=== PATIENT | female | born 1935 | race Caucasian/White ===

== ENCOUNTER 2019-01-15 17:53 | Inpatient (IN) ==
[2019-01-16] MEDS ORDERED: Mag Hydrox/Al Hydrox/Simeth 30 ML UDC PO PRN (18:52)
[2019-01-16] MEDS ORDERED: *HR* Dextrose 50 % in Water (Syg) 50 ML SYRINGE IVP PRN (18:53)
[2019-01-16] MEDS ORDERED: D5% in Water 1,000 ML IVC PRN (18:53)
[2019-01-16] MEDS ORDERED: Dextrose Gel 15 GM/37.5 ML TUBE PO PRN ×2 (18:53)
[2019-01-16] MEDS ORDERED: CALCIUM PO SCH (21:00)
[2019-01-16] MEDS ORDERED: VIT D PO SCH (21:00)
[2019-01-16] MEDS: Insulin LISPRO 300 UNITS/3 ML VIAL SQ SCH (21:21)
[2019-01-17] MEDS: Sennosides/Docusate Sodium TABLET PO SCH ×3 (00:46→21:18)
[2019-01-17] MEDS: Melatonin 3 MG TABLET PO PRN ×2 (00:56→21:13)
[2019-01-17] MEDS: *HR* OxyCODONE Immed Rel 5 MG TABLET PO PRN (00:56)
[2019-01-17 05:06] LABS: Basophils # 0.1 K/mcL (0.0-0.2); Basophils % 0.6 %; Eosinophils # 0.2 K/mcL (0.0-0.6); Eosinophils % 1.4 %; Hematocrit 31.5 % (35.3-44.9); Hemoglobin 10.1 g/dL (11.5-15.4); Immature Granulocytes % 2.2 % (0-4); Lymphocytes # 2.2 K/mcL (0.6-4.6); Lymphocytes % 20.3 %; Mean Corpuscular HGB Conc 32.1 g/dL (31.6-35.5); Mean Corpuscular Hemoglobin 30.7 pg (28.0-33.3); Mean Corpuscular Volume 95.7 fL (83.0-100.0); Mean Platelet Volume 10.2 fL (9.4-12.4); Monocytes # 0.8 K/mcL (0.0-1.3); Monocytes % 7.2 %; Neutrophils # 7.5 K/mcL (1.6-8.9); Platelet Count 278 K/mcL (140-400); Red Blood Count 3.29 M/mcL (3.82-4.97); Segmented Neutrophils % 68.3 %; White Blood Count 10.9 K/mcL (4.3-11.1)
[2019-01-17 05:25] LABS: Alanine Aminotransferase 18 Units/L (7-52); Albumin 3.3 g/dL (3.5-5.7); Albumin/Globulin Ratio 1.3 (1.1-2.2); Alkaline Phosphatase 61 Units/L (34-104); Aspartate Amino Transferase 21 Units/L (13-39); BUN/Creatinine Ratio 27 (6-26); Bilirubin,Total 0.7 mg/dL (0.3-1.0); Blood Urea Nitrogen 23 mg/dL (8-23); Calcium 8.7 mg/dL (8.6-10.3); Carbon Dioxide 27 mEq/L (23-29); Chloride 99 mEq/L (98-107); Globulin 2.6 g/dL (2.4-3.5); Glucose 177 mg/dL (70-105); Magnesium 1.6 mg/dL (1.6-2.6); Osmolality,Calculated 290 (280-300); Potassium 4.2 mEq/L (3.5-5.1); Sodium 136 mEq/L (136-145); Total Protein 5.9 g/dL (6.4-8.9); eGFR For African Americans > 60 (> 60); eGFR For Non-African Americans > 60 (> 60)
[2019-01-17] MEDS: *HR* Glimepiride 4 MG TABLET PO SCH (08:53)
[2019-01-17] MEDS: BuPROPion XL (24 HR) 150 MG TABLET PO SCH (08:53)
[2019-01-17] MEDS: Insulin LISPRO 300 UNITS/3 ML VIAL SQ SCH ×4 (08:54→21:18)
[2019-01-17] MEDS: Bisoprolol/HCTZ 10/6.25 TABLET PO SCH (08:55)
[2019-01-17] MEDS: Trolamine Salicylate/Aloe Vera 35.4 GM TUBE TP SCH (08:55)
[2019-01-17] MEDS ORDERED: *HR* Enoxaparin 30 MG/0.3 ML SYRINGE SQ SCH (09:00)
[2019-01-17] MEDS ORDERED: METFORMIN HCL 500 MG PO SCH (09:00)
[2019-01-17] MEDS: Acetaminophen 325 MG TABLET PO PRN ×2 (09:28→21:13)
--- NOTE | 2019-01-17 11:40 | Internal Med History&Physical ---
Date of Encounter: 01/17/19 Time of Encounter: 11:37 Assessment and Plan (1) Thoracic vertebral fracture Current visit: Yes Status: Acute This is at T3 through T8 and surgery corrected. Qualifiers: Encounter type: subsequent encounter Thoracic vertebra fracture level: unspecified thoracic vertebra Fracture type: closed Fracture morphology: bu rst- stable Fracture healing: with routine healing Qualified Code(s): S22.001D - Stable burst fracture of unspecified thoracic vertebra, subsequent encounter for fracture with routine healing (2) Multiple rib fractures Current visit: Yes Status: Acute Pain control is problematic and she uses lidocaine patches for same. Qualifiers: Encounter type: subsequent encounter Fracture type: closed Laterality: bilateral Fracture healing: with routine healing Qualified Code(s): S22.43XD - Multiple fractures of ribs, bilateral, subsequent encounter for fracture with routine healing (3) Bilateral scapular fractures Current visit: Yes Status: Acute No apparent needs other than pain control. Qualifiers: Encounter type: subsequent encounter Fracture type: closed Fracture healing: with routine healing Qualified Code(s): S42.101D - Fracture of unspecified part of scapula, right shoulder, subsequent encounter for fracture with routine healing; S42.102D - Fracture of unspecified part of scapula, left shoulder, subsequent encounter for fracture with routine healing (4) Pneumothorax Current visit: Yes Status: Acute Apparently self-limited. Qualifiers: Pneumothorax type: unspecified pneumothorax Qualified Code(s): J93.9 - Pneumothorax, unspecified (5) Subdural hematoma Current visit: Yes Status: Acute Apparently small and self-limited (6) Hypertension, essential Current visit: Yes Status: Acute Moderately controlled on current regimen. Will follow. (7) Insulin-requiring or dependent type II diabetes mellitus Current visit: Yes Status: Chronic We will continue with current regimen and follow with sliding scale insulin. (8) Depression Current visit: Yes Status: Acute Currently treated but will ask behavioral psychology to evaluate, especially with questionable mental impairment. 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 Qualifiers: Left eye visual impairment category: left - unspecified impairment Qualified Code(s): H54.40 - Blindness, one eye, unspecified eye Internal Medicine - H&P: HPI Admitted From: Hospital to Hospital Transfer Plans for Post Hospital Care: Home History of present illness: Ms. Carlos is a 83 year old female who was in her usual state of health until she fell, at home on 01/06/2019. She fell in the presence of family (her grandson) who thought she passed out. However, she denies syncope, to her knowledge. She had no palpitations, chest pain, diaphoresis, etc. After the fall, she had acute pain in his transfer for management at [facility]. She was found to have bilateral scapular body fractures, rib fractures, fractures of lumbar spine which underwent fusion surgery. She had T5 traumatic burst fracture with 3 mm retropulsion, T4 and T5 spinous process fractures, T5 bilateral lamina fracture. She underwent T3-T8 fusion. She was noted to have left rib 7 through 11 and right fifth through eighth rib fractures with small left pneumothorax. She was incidentally found to have fatty liver, thoracolumbar degenerative disc disease, superior mesenteric artery atherosclerosis. She is noted on [facility] hospital notes to have cognitive deficits with are moderate but this is not consistently described in the notes. She is to have follow-up with trauma surgery but at an undetermined time and with neurosurgery in 2 weeks for a wound check. She was noted to have a right tentorial traumatic subdural hematoma. She is now transferred for rehabilitation, return to activities of daily living, and supportive care. Past medical history, social history, and review of systems were reviewed with patient. Much of her past medical history was obtained from outside records, as well. Of note, she was receiving Lovenox 30 mg twice a day as DVT prophylaxis at the other hospital. She is diabetic and has had retinal detachment followed by 3 surgeries which were unsuccessful. She does not even detect light in the right eye. She has visual disturbance in the left eye, as well, because of her diabetes. She has a history of depression but is not taking any medications for this, currently. 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 She lives alone but her daughter lives across the road. Family history is noncontributory. Past Med Surg Social Fam HX - Past Medical History Medical history: diabetes, hyperlipidemia, hypertension Psychiatric history: depression - Past Surgical History Additional surgical history: Thoracic Spine ORIF s/p fall 2019 - Social History Smoking Status: Never smoker Smokeless Tobacco Status: No Alcohol use: none Drug use: none - Family History Father Living Status: Hx Family Cardiac Disorders: Yes Internal Medicine - H&P: Meds Acetaminophen [Tylenol] 650 mg PO Q4HR PRN 01/16/19 [History] Bisoprolol/HCTZ 10/6.25 [Ziac 10/6.25] 1 each PO DAILY 01/16/19 [History] BuPROPion [Wellbutrin] 150 mg PO DAILY 01/16/19 [History] Calcium 500 + Vit D Caplet 1 tab PO BID 01/16/19 [History] Docusate Sodium-Senna Tablet 1 tab PO BID 01/16/19 [History] Enoxaparin [Lovenox] 40 mg SQ DAILY 01/16/19 [History] Glimepiride [Amaryl] 4 mg PO DAILY 01/16/19 [History] Insulin Glargine [Lantus] 20 units SQ QPM 01/16/19 [History] Lidocaine [Aspercreme] 2 each TP DAILY 01/16/19 [History] Lisinopril 2.5 mg PO DAILY 01/16/19 [History] Metformin HCl [Glucophage Xr] 500 mg PO DAILY 01/16/19 [History] OxyCODONE Immed Rel 5 mg PO Q6HR PRN 01/16/19 [History] Allergy/AdvReac Type Severity Reaction Status Date / Time No Known Allergies Allergy Verified 01/06/19 15:03 All Systems PM: Her mouth is always dry and she uses, all of the time. Bowel and bladder function have been normal. - Constitutional Vitals: Temp Pulse Resp BP Pulse Ox 98.0 F 82 16 150/71 98 01/17/19 07:42 01/17/19 08:16 01/17/19 08:16 01/17/19 08:16 01/17/19 08:16 Exam: General: In no apparent distress, alert and oriented 3. Head: Atraumatic and normocephalic. Eyes: Extraocular muscles are intact, left pupil is round and reactive to light and accommodation. The right, accommodates sympatheticly but not directly. Sclerae anicteric. Ears: External ears are normal to inspection and hearing is grossly normal. Nose: Patent without lesion noted. Mouth: No intraoral lesions seen. Dentition is unremarkable. Her tongue is notably dry. Neck: Supple with trachea midline. There is no thyromegaly or adenopathy and carotids are 2+ without bruit heard. Respiratory: No use of accessory muscles. Lungs are clear throughout. Normal airflow. Marked ecchymosis at right lower thorax, laterally. Cardiovascular: Regular rate and rhythm without murmur appreciated. Abdomen: Bowel sounds are normal. No hepatosplenomegaly masses or tenderness. Obese and therefore difficult to palpate deeply. Extremities: No cyanosis clubbing or edema. Neurological: A and O 3. Cranial nerves II through XII are intact. No focal deficits and no abnormal movements or postures. Skin: Warm and non-diaphoretic with no lesions noted. However, she does have a low back dressing which was not removed. Breasts, pelvic and rectal: Not examined. Internal Med - H&P Results - Labs CBC & Chem 7: 01/17/19 04:56 01/17/19 04:56 Labs: Short CBC 01/17/19 Range/Units 04:56 WBC 10.9 (4.3-11.1) K/mcL Hgb 10.1 L (11.5-15.4) g/dL Hct 31.5 L (35.3-44.9) % Plt Count 278 (140-400) K/mcL Neutrophils # 7.5 (1.6-8.9) K/mcL BMP 01/17/19 04:56 Sodium 136 Potassium 4.2 Chloride 99 Carbon Dioxide 27 BUN 23 Creatinine 0.86 Glucose 177 H Calcium 8.7 Liver Function 01/17/19 Range/Units 04:56 Total Bilirubin 0.7 (0.3-1.0) mg/dL AST 21 (13-39) Units/L ALT 18 (7-52) Units/L Alkaline Phosphatase 61 (34-104) Units/L Albumin 3.3 L (3.5-5.7) g/dL
[2019-01-17] MEDS ORDERED: cloNIDine HCl 0.1 MG TABLET PO PRN (12:18)
[2019-01-17] MEDS: Insulin DETEMIR 100 UNIT/ML X5UNITS SQ SCH (17:30)
[2019-01-18] MEDS: Ondansetron ODT 4 MG TAB.RAPDIS SL PRN (01:18)
[2019-01-18] MEDS: *HR* OxyCODONE Immed Rel 5 MG TABLET PO PRN (01:18)
[2019-01-18] MEDS: *HR* Enoxaparin 40 MG/0.4 ML SYRINGE SQ SCH (06:50)
[2019-01-18] MEDS: Bisoprolol/HCTZ 10/6.25 TABLET PO SCH (08:19)
[2019-01-18] MEDS: Sennosides/Docusate Sodium TABLET PO SCH ×2 (08:20→20:11)
[2019-01-18] MEDS: Acetaminophen 325 MG TABLET PO PRN (08:20)
[2019-01-18] MEDS: Trolamine Salicylate/Aloe Vera 35.4 GM TUBE TP SCH (08:21)
[2019-01-18] MEDS: BuPROPion XL (24 HR) 150 MG TABLET PO SCH (08:21)
[2019-01-18] MEDS: *HR* Glimepiride 4 MG TABLET PO SCH (08:21)
[2019-01-18] MEDS: Insulin LISPRO 300 UNITS/3 ML VIAL SQ SCH ×4 (08:21→21:57)
--- NOTE | 2019-01-18 12:35 | Internal Med Progress Note ---
Date of Encounter: 01/19/19 Time of Encounter: 12:03 - Subjective Interval history: dd Assessment and Plan (1) Thoracic vertebral fracture Current visit: Yes Status: Acute This is at T3 through T8 and surgery corrected. Qualifiers: Encounter type: subsequent encounter Thoracic vertebra fracture level: unspecified thoracic vertebra Fracture type: closed Fracture morphology: burst- stable Fracture healing: with routine healing Qualified Code(s): S2 2.001D - Stable burst fracture of unspecified thoracic vertebra, subsequent encounter for fracture with routine healing (2) Multiple rib fractures Current visit: Yes Status: Acute Pain control is problematic and she uses lidocaine patches for same. Qualifiers: Encounter type: subsequent encounter Fracture type: closed Laterality: bilateral Fracture healing: with routine healing Qualified Code(s): S22.43XD - Multiple fractures of ribs, bilateral, subsequent encounter for fracture with routine healing (3) Bilateral scapular fractures Current visit: Yes Status: Acute No apparent needs other than pain control. Qualifiers: Encounter type: subsequent encounter Fracture type: closed Fracture healing: with routine healing Qualified Code(s): S42.101D - Fracture of unspecified part of scapula, right shoulder, subsequent encounter for fracture with routine healing; S42.102D - Fracture of unspecified part of scapula, left shoulder, subsequent encounter for fracture with routine healing (4) Pneumothorax Current visit: Yes Status: Acute Apparently self-limited. Qualifiers: Pneumothorax type: unspecified pneumothorax Qualified Code(s): J93.9 - Pneumothorax, unspecified (5) Subdural hematoma Current visit: Yes Status: Acute Apparently small and self-limited (6) Hypertension, essential Current visit: Yes Status: Acute Moderately controlled on current regimen. Will follow. (7) Insulin-requiring or dependent type II diabetes mellitus Current visit: Yes Status: Chronic We will continue with current regimen and follow with sliding scale insulin. (8) Depression Current visit: Yes Status: Acute Currently treated but will ask behavioral psychology to evaluate, especially with questionable mental impairment. 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 Qualifiers: Left eye visual impairment category: left - unspecified impairment Qualified Code(s): H54.40 - Blindness, one eye, unspecified eye Interval hx Ms. Carlos is a 83 year old female who was in her usual state of health until she fell, at home on 01/06/2019. She fell in the presence of family (her grandson) who thought she passed out. However, she denies syncope, to her knowledge. She had no palpitations, chest pain, diaphoresis, etc. After the fall, she had acute pain in his transfer for management at [facility]. She was found to have bilateral scapular body fractures, rib fractures, fractures of lumbar spine which underwent fusion surgery. She had T5 traumatic burst fracture with 3 mm retropulsion, T4 and T5 spinous process fractures, T5 bilateral lamina fracture. She underwent T3-T8 fusion. She was noted to have left rib 7 through 11 and right fifth through eighth rib fractures with small left pneumothorax. She was incidentally found to have fatty liver, thoracolumbar degenerative disc disease, superior mesenteric artery atherosclerosis. She is noted on [facility] hospital notes to have cognitive deficits with are moderate but this is not consistently described in the notes. She is to have follow-up with trauma surgery but at an undetermined time and with neurosurgery in 2 weeks for a wound check. She was noted to have a right tentorial traumatic subdural hematoma. She is now transferred for rehabilitation, return to activities of daily living, and supportive care. Past medical history, social history, and review of systems were reviewed with patient. Much of her past medical history was obtained from outside records, as well. Of note, she was receiving Lovenox 30 mg twice a day as DVT prophylaxis at the other hospital. She is diabetic and has had retinal detachment followed by 3 surgeries which were unsuccessful. She does not even detect light in the right eye. She has visual disturbance in the left eye, as well, because of her diabetes. EXAM General: In no apparent distress, alert and oriented Head: Atraumatic and normocephalic. Eyes: Extraocular muscles are intact, left pupil is round and reactive to light and accommodation. The right, accommodates sympatheticly but not directly. Sclerae anicteric. Ears: External ears are normal to inspection and hearing is grossly normal. Nose: Patent without lesion noted. Mouth: No intraoral lesions seen. Dentition is unremarkable. Her tongue is notably dry. Neck: Supple with trachea midline. There is no thyromegaly or adenopathy and carotids are 2+ without bruit heard. Respiratory: No use of accessory muscles. Lungs are clear throughout. Normal airflow. Marked ecchymosis at right lower thorax, laterally. Cardiovascular: Regular rate and rhythm without murmur appreciated. Abdomen: Bowel sounds are normal. No hepatosplenomegaly masses or tenderness. Obese and therefore difficult to palpate deeply. Extremities: No cyanosis clubbing or edema. Neurological: A and O 3. Cranial nerves II through XII are intact. No focal deficits - Constitutional Vitals: Temp Pulse Resp BP Pulse Ox 97.5 F L 73 14 142/69 94 01/18/19 07:37 01/18/19 07:37 01/18/19 07:37 01/18/19 07:37 01/18/19 07:37 Internal Medicine: Result - Labs CBC & Chem 7: 01/19/19 04:03 01/19/19 04:03 Consult Discharge Plan - Plan Referrals: Eusebio Walker MD [Primary Care Provider] -
[2019-01-18] MEDS: Insulin DETEMIR 100 UNIT/ML X5UNITS SQ SCH (16:51)
[2019-01-19 05:14] LABS: Hematocrit 29.3 % (35.3-44.9); Hemoglobin 9.5 g/dL (11.5-15.4); Mean Corpuscular HGB Conc 32.4 g/dL (31.6-35.5); Mean Corpuscular Hemoglobin 31.1 pg (28.0-33.3); Mean Corpuscular Volume 96.1 fL (83.0-100.0); Mean Platelet Volume 10.7 fL (9.4-12.4); Platelet Count 294 K/mcL (140-400); Red Blood Count 3.05 M/mcL (3.82-4.97); Red Cell Distribution Width 14.5 % (11.5-14.5); White Blood Count 14.8 K/mcL (4.3-11.1)
[2019-01-19 05:36] LABS: BUN/Creatinine Ratio 30 (6-26); Blood Urea Nitrogen 26 mg/dL (8-23); Calcium 8.6 mg/dL (8.6-10.3); Carbon Dioxide 30 mEq/L (23-29); Chloride 100 mEq/L (98-107); Glucose 107 mg/dL (70-105); Osmolality,Calculated 291 (280-300); Potassium 4.4 mEq/L (3.5-5.1); Sodium 138 mEq/L (136-145); eGFR For African Americans > 60 (> 60); eGFR For Non-African Americans > 60 (> 60)
[2019-01-19] MEDS: *HR* Enoxaparin 40 MG/0.4 ML SYRINGE SQ SCH (05:37)
[2019-01-19] MEDS: Insulin LISPRO 300 UNITS/3 ML VIAL SQ SCH ×4 (07:22→20:15)
[2019-01-19] MEDS: BuPROPion XL (24 HR) 150 MG TABLET PO SCH (07:23)
[2019-01-19] MEDS: Bisoprolol/HCTZ 10/6.25 TABLET PO SCH (07:23)
[2019-01-19] MEDS: Sennosides/Docusate Sodium TABLET PO SCH ×2 (07:23→20:14)
[2019-01-19] MEDS: *HR* Glimepiride 4 MG TABLET PO SCH (07:24)
[2019-01-19] MEDS: Trolamine Salicylate/Aloe Vera 35.4 GM TUBE TP SCH (07:25)
[2019-01-19 09:48] LABS: Bilirubin,Urine Negative (Negative); Blood,Urine Trace-intact (Negative); Clarity,Urine Slightly Cloudy (Clear); Color,Urine Yellow (Yellow); Glucose,Urine (UA) Normal (Normal); Ketones,Urine Negative (Negative); Leukocyte Esterase,Urine Moderate (Negative); Nitrite,Urine Negative (Negative); Protein,Urine Trace mg/dL (Neg-Trace); Specific Gravity,Urine 1.015 (1.010-1.025); Urobilinogen,Urine Normal (Normal)
[2019-01-19 09:56] LABS: Bacteria,Urine Moderate per hpf (None-Few); Squamous Epithelial Cell,Urine Few per lpf (None-Few); WBC,Urine 30-50 per hpf (0-3); Yeast,Urine Many per hpf (None Seen)
--- NOTE | 2019-01-19 14:55 | Internal Med Progress Note ---
Date of Encounter: 01/19/19 Time of Encounter: 13:40 - Subjective Interval history: dd Assessment and Plan (1) Thoracic vertebral fracture Current visit: Yes Status: Acute This is at T3 through T8 and surgery corrected. Qualifiers: Encounter type: subsequent encounter Thoracic vertebra fracture level: unspecified thoracic vertebra Fracture type: closed Fracture morphology: burst- stable Fracture healing: with routine healing Qualified Code(s): S2 2.001D - Stable burst fracture of unspecified thoracic vertebra, subsequent encounter for fracture with routine healing (2) Multiple rib fractures Current visit: Yes Status: Acute Pain control is problematic and she uses lidocaine patches for same. Qualifiers: Encounter type: subsequent encounter Fracture type: closed Laterality: bilateral Fracture healing: with routine healing Qualified Code(s): S22.43XD - Multiple fractures of ribs, bilateral, subsequent encounter for fracture with routine healing (3) Bilateral scapular fractures Current visit: Yes Status: Acute No apparent needs other than pain control. Qualifiers: Encounter type: subsequent encounter Fracture type: closed Fracture healing: with routine healing Qualified Code(s): S42.101D - Fracture of unspecified part of scapula, right shoulder, subsequent encounter for fracture with routine healing; S42.102D - Fracture of unspecified part of scapula, left shoulder, subsequent encounter for fracture with routine healing (4) Pneumothorax Current visit: Yes Status: Acute Apparently self-limited. Qualifiers: Pneumothorax type: unspecified pneumothorax Qualified Code(s): J93.9 - Pneumothorax, unspecified (5) Subdural hematoma Current visit: Yes Status: Acute Apparently small and self-limited (6) Hypertension, essential Current visit: Yes Status: Acute Moderately controlled on current regimen. Will follow. (7) Insulin-requiring or dependent type II diabetes mellitus Current visit: Yes Status: Chronic We will continue with current regimen and follow with sliding scale insulin. (8) Depression Current visit: Yes Status: Acute Currently treated but will ask behavioral psychology to evaluate, especially with questionable mental impairment. 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 Qualifiers: Left eye visual impairment category: left - unspecified impairment Qualified Code(s): H54.40 - Blindness, one eye, unspecified eye Interval hx Ms. Carlos is a 83 year old female who was in her usual state of health until she fell, at home on 01/06/2019. She fell in the presence of family (her grandson) who thought she passed out. However, she denies syncope, to her knowledge. She had no palpitations, chest pain, diaphoresis, etc. After the fall, she had acute pain in his transfer for management at [facility]. She was found to have bilateral scapular body fractures, rib fractures, fractures of lumbar spine which underwent fusion surgery. She had T5 traumatic burst fracture with 3 mm retropulsion, T4 and T5 spinous process fractures, T5 bilateral lamina fracture. She underwent T3-T8 fusion. She was noted to have left rib 7 through 11 and right fifth through eighth rib fractures with small left pneumothorax. She was incidentally found to have fatty liver, thoracolumbar degenerative disc disease, superior mesenteric artery atherosclerosis. She is noted on [facility] hospital notes to have cognitive deficits with are moderate but this is not consistently described in the notes. She is to have follow-up with trauma surgery but at an undetermined time and with neurosurgery in 2 weeks for a wound check. She was noted to have a right tentorial traumatic subdural hematoma. She is now transferred for rehabilitation, return to activities of daily living, and supportive care. Past medical history, social history, and review of systems were reviewed with patient. Much of her past medical history was obtained from outside records, as well. Of note, she was receiving Lovenox 30 mg twice a day as DVT prophylaxis at the other hospital. She is diabetic and has had retinal detachment followed by 3 surgeries which were unsuccessful. She does not even detect light in the right eye. She has visual disturbance in the left eye, as well, because of her diabetes. EXAM General: In no apparent distress, alert and oriented Head: Atraumatic and normocephalic. Eyes: Extraocular muscles are intact, left pupil is round and reactive to light and accommodation. The right, accommodates sympatheticly but not directly. Sclerae anicteric. Ears: External ears are normal to inspection and hearing is grossly normal. Nose: Patent without lesion noted. Mouth: No intraoral lesions seen. Dentition is unremarkable. Her tongue is notably dry. Neck: Supple with trachea midline. There is no thyromegaly or adenopathy and carotids are 2+ without bruit heard. Respiratory: No use of accessory muscles. Lungs are clear throughout. Normal airflow. Marked ecchymosis at right lower thorax, laterally. Cardiovascular: Regular rate and rhythm without murmur appreciated. Abdomen: Bowel sounds are normal. No hepatosplenomegaly masses or tenderness. Obese and therefore difficult to palpate deeply. Extremities: No cyanosis clubbing or edema. Neurological: A and O 3. Cranial nerves II through XII are intact. No focal deficits - Constitutional Vitals: Temp Pulse Resp BP Pulse Ox 98.0 F 71 16 126/70 93 01/19/19 08:45 01/19/19 08:45 01/19/19 08:45 01/19/19 08:45 01/19/19 08:45 Internal Medicine: Result - Labs CBC & Chem 7: 01/19/19 04:03 01/19/19 04:03 Labs: Short CBC 01/19/19 Range/Units 04:03 WBC 14.8 H (4.3-11.1) K/mcL Hgb 9.5 L (11.5-15.4) g/dL Hct 29.3 L (35.3-44.9) % Plt Count 294 (140-400) K/mcL BMP 01/19/19 04:03 Sodium 138 Potassium 4.4 Chloride 100 Carbon Dioxide 30 H BUN 26 H Creatinine 0.88 Glucose 107 H Calcium 8.6 Urine 01/19/19 Range/Units 07:50 Urine Color Yellow (Yellow) Urine Clarity Slightly Cloudy A (Clear) Urine pH 7.0 (5.0-8.0) pH Units Ur Specific [place] 1.015 (1.010-1.025) Urine Protein Trace (Neg-Trace) mg/dL Urine Glucose (UA) Normal (Normal) mg/dL Consult Discharge Plan - Plan Referrals: Eusebio Walker MD [Primary Care Provider] -
[2019-01-19] MEDS: Insulin DETEMIR 100 UNIT/ML X5UNITS SQ SCH (16:54)
[2019-01-19] MEDS: Melatonin 3 MG TABLET PO PRN (22:33)
[2019-01-20] MEDS: *HR* Enoxaparin 40 MG/0.4 ML SYRINGE SQ SCH (05:32)
[2019-01-20] MEDS: Insulin LISPRO 300 UNITS/3 ML VIAL SQ SCH ×4 (07:43→23:47)
[2019-01-20] MEDS: Trolamine Salicylate/Aloe Vera 35.4 GM TUBE TP SCH (08:56)
[2019-01-20] MEDS: Sennosides/Docusate Sodium TABLET PO SCH ×2 (09:04→23:47)
[2019-01-20] MEDS: Bisoprolol/HCTZ 10/6.25 TABLET PO SCH (09:04)
[2019-01-20] MEDS: BuPROPion XL (24 HR) 150 MG TABLET PO SCH (09:04)
[2019-01-20] MEDS: *HR* Glimepiride 4 MG TABLET PO SCH (09:04)
--- NOTE | 2019-01-20 13:29 | Internal Med Progress Note ---
Date of Encounter: 01/20/19 Time of Encounter: 13:27 - Assessment and plan (1) Thoracic vertebral fracture Current Visit: Yes Status: Acute Assessment and plan: Status post T-3 to T8 fusion. Pain controlled. Follow up with surgeon as scheduled. Qualifiers: Encounter type: subsequent encounter Thoracic vertebra fracture level: unspecified thoracic vertebra Fracture type: closed Fracture morphology: burst- stable Fracture healing: with routine healing Qualified Code(s): S22.001D - Stable burst fracture of unspecified thoracic vertebra, subsequent encounter for fracture with routine healing (2) Multiple rib fractures Current Visit: Yes Status: Acute Assessment and plan: Monitor. Pain controlled with current medication. Qualifiers: Encounter type: subsequent encounter Fracture type: closed Laterality: bilateral Fracture healing: with routine healing Qualified Code(s): S22.43XD - Multiple fractures of ribs, bilateral, subsequent encounter for fracture with routine healing (3) Bilateral scapular fractures Current Visit: Yes Status: Acute Qualifiers: Encounter type: subsequent encounter Fracture type: closed Fracture healing: with routine healing Qualified Code(s): S42.101D - Fracture of unspecified part of scapula, right shoulder, subsequent encounter for fracture with routine healing; S42.102D - Fracture of unspecified part of scapula, left shoulder, subsequent encounter for fracture with routine healing (4) Subdural hematoma Current Visit: Yes Status: Acute Assessment and plan: Monitor. Seems to be resolving. (5) Hypertension, essential Current Visit: Yes Status: Acute Assessment and plan: Controlled with current medication. Monitor blood pressure. (6) Insulin-requiring or dependent type II diabetes mellitus Current Visit: Yes Status: Chronic Assessment and plan: Controlled with insulin. Monitor fingerstick blood sugar. Will adjust medicines as necessary. (7) Depression Current Visit: Yes Status: Acute Assessment and plan: Controlled with current medication. Monitor. Qualifiers: Depression Type: other depression Qualified Code(s): F32.89 - Other specified depressive episodes (8) Blind right eye Current Visit: Yes Status: Acute Qualifiers: Left eye visual impairment category: left - unspecified impairment Qualified Code(s): H54.40 - Blindness, one eye, unspecified eye - Time Spent With Patient less than 15 minutes - Subjective Interval history: Participating well with therapy. Has frequent urinary incontinence. States pain is controlled with current medication. States bowels are moving as normal. Denies fever, chills, nausea vomiting or diarrhea, shortness of breath or chest pain. Ambulating with contact guard assist with Walker with 60 feet. - Constitutional Vitals: Temp Pulse Resp BP Pulse Ox 98.5 F 62 16 155/75 98 01/20/19 07:39 01/20/19 07:39 01/20/19 07:39 01/20/19 07:39 01/20/19 07:39 General appearance: Present: cooperative, A&O X 3, pleasant, no acute distress, answers questions appropriately - Head Head exam: Present: atraumatic, normocephalic - Eye Eye exam: Present: PERRL, conjuntiva pink, sclera anicteric Pupils: Present: PERRL - Neck Neck exam general surgery: Present: supple, trachea midline. Absent: lymphadenopathy - Respiratory Respiratory exam: Present: CTAB. Absent: accessory muscle use, rales, rhonchi, wheezes - Cardiovascular Cardiovascular exam: Present: RRR, +S1, +S2. Absent: diastolic murmur, gallop, rubs, systolic murmur - GI/Abdominal GI/Abdominal exam: Present: normal bowel sounds, soft, no peritoneal signs. Absent: distended, tenderness - Extremities Exam Extremities exam: Present: warm, radial pulses palpable and symmetrical. Absent: calf tenderness, cyanotic, pedal edema - Neurological Exam Neurological exam: Present: CN II-XII intact, oriented X3, no focal deficits. Absent: pronater drift, facial droop, speech deficit - Skin Skin exam: Present: dry, intact Internal Medicine: Result - Labs CBC & Chem 7: 01/19/19 04:03 01/19/19 04:03 Consult Discharge Plan - Plan Referrals: Eusebio Walker MD [Primary Care Provider] -
[2019-01-20] MEDS: Acetaminophen 325 MG TABLET PO PRN (16:36)
[2019-01-20] MEDS: Insulin DETEMIR 100 UNIT/ML X5UNITS SQ SCH (17:41)
[2019-01-20] MEDS: Melatonin 3 MG TABLET PO PRN (20:54)
[2019-01-21] MEDS: *HR* Enoxaparin 40 MG/0.4 ML SYRINGE SQ SCH (04:32)
[2019-01-21] MEDS: Acetaminophen 325 MG TABLET PO PRN ×2 (04:32→09:00)
[2019-01-21] MEDS: Insulin LISPRO 300 UNITS/3 ML VIAL SQ SCH ×4 (07:34→20:32)
[2019-01-21] MEDS: BuPROPion XL (24 HR) 150 MG TABLET PO SCH (09:01)
[2019-01-21] MEDS: Bisoprolol/HCTZ 10/6.25 TABLET PO SCH (09:01)
[2019-01-21] MEDS: Sennosides/Docusate Sodium TABLET PO SCH ×2 (09:01→20:32)
[2019-01-21] MEDS: *HR* Glimepiride 4 MG TABLET PO SCH (09:01)
[2019-01-21] MEDS: Trolamine Salicylate/Aloe Vera 35.4 GM TUBE TP SCH (09:02)
--- NOTE | 2019-01-21 09:56 | Internal Med Progress Note ---
Date of Encounter: 01/21/19 Time of Encounter: 09:54 - Assessment and plan (1) Thoracic vertebral fracture Current Visit: Yes Status: Acute Assessment and plan: Status post T-3 to T8 fusion. Pain controlled. Follow up with surgeon as scheduled. Qualifiers: Encounter type: subsequent encounter Thoracic vertebra fracture level: unspecified thoracic vertebra Fracture type: closed Fracture morphology: burst- stable Fracture healing: with routine healing Qualified Code(s): S22.001D - Stable burst fracture of unspecified thoracic vertebra, subsequent encounter for fracture with routine healing (2) Multiple rib fractures Current Visit: Yes Status: Acute Assessment and plan: Monitor. Pain controlled with current medication. Qualifiers: Encounter type: subsequent encounter Fracture type: closed Laterality: bilateral Fracture healing: with routine healing Qualified Code(s): S22.43XD - Multiple fractures of ribs, bilateral, subsequent encounter for fracture with routine healing (3) Bilateral scapular fractures Current Visit: Yes Status: Acute Qualifiers: Encounter type: subsequent encounter Fracture type: closed Fracture healing: with routine healing Qualified Code(s): S42.101D - Fracture of unspecified part of scapula, right shoulder, subsequent encounter for fracture with routine healing; S42.102D - Fracture of unspecified part of scapula, left shoulder, subsequent encounter for fracture with routine healing (4) Subdural hematoma Current Visit: Yes Status: Acute Assessment and plan: Monitor. Seems to be resolving. (5) Hypertension, essential Current Visit: Yes Status: Acute Assessment and plan: Controlled with current medication. Monitor blood pressure. (6) Insulin-requiring or dependent type II diabetes mellitus Current Visit: Yes Status: Chronic Assessment and plan: Controlled with insulin. Monitor fingerstick blood sugar. Will adjust medicines as necessary. (7) Depression Current Visit: Yes Status: Acute Assessment and plan: Controlled with current medication. Monitor. Qualifiers: Depression Type: other depression Qualified Code(s): F32.89 - Other specified depressive episodes (8) Blind right eye Current Visit: Yes Status: Acute Qualifiers: Left eye visual impairment category: left - unspecified impairment Qualified Code(s): H54.40 - Blindness, one eye, unspecified eye (9) UTI (urinary tract infection) Current Visit: Yes Status: Acute Assessment and plan: Bactrim DS. Will monitor for effectiveness. Qualifiers: Urinary tract infection type: site unspecified Hematuria presence: without hematuria Qualified Code(s): N39.0 - Urinary tract infection, site not specified (10) Intertrigo Current Visit: Yes Status: Acute Assessment and plan: Nystatin powder to bilateral breasts. - Time Spent With Patient less than 15 minutes - Subjective Interval history: Participating well with therapy. Has frequent urinary incontinence. will start Bactrim for UTI. States pain is controlled with current medication. States bowels are moving as normal. Denies fever, chills, nausea vomiting or diarrhea, shortness of breath or chest pain. - Constitutional Vitals: Temp Pulse Resp BP Pulse Ox 97.8 F 64 15 152/73 97 01/21/19 07:27 01/21/19 07:27 01/21/19 07:27 01/21/19 07:27 01/21/19 07:27 General appearance: Present: cooperative, A&O X 3, pleasant, no acute distress, answers questions appropriately - Head Head exam: Present: atraumatic, normocephalic - Eye Eye exam: Present: PERRL, conjuntiva pink, sclera anicteric Pupils: Present: PERRL - Neck Neck exam general surgery: Present: supple, trachea midline. Absent: lymphadenopathy - Respiratory Respiratory exam: Present: CTAB. Absent: accessory muscle use, rales, rhonchi, wheezes - Cardiovascular Cardiovascular exam: Present: RRR, +S1, +S2. Absent: diastolic murmur, gallop, rubs, systolic murmur - GI/Abdominal GI/Abdominal exam: Present: normal bowel sounds, soft, no peritoneal signs. Absent: distended, tenderness - Extremities Exam Extremities exam: Present: warm, radial pulses palpable and symmetrical. Absent: calf tenderness, cyanotic, pedal edema - Incison Comments: Thoracic spine incision, well approximated with sutures intact. No sign of infection or drainage. - Neurological Exam Neurological exam: Present: CN II-XII intact, oriented X3, no focal deficits. Absent: pronater drift, facial droop, speech deficit - Skin Skin exam: Present: dry, intact Additional comments: red yeast rash to under bilat breasts Internal Medicine: Result - Labs CBC & Chem 7: 01/19/19 04:03 01/19/19 04:03 Consult Discharge Plan - Plan Referrals: Eusebio Walker MD [Primary Care Provider] -
[2019-01-21] MEDS: Sulfamethoxazole/Trimeth DS 1 EACH TABLET PO SCH ×2 (10:05→20:17)
[2019-01-21] MEDS: Insulin DETEMIR 100 UNIT/ML X5UNITS SQ SCH (17:02)
[2019-01-21] MEDS: Melatonin 3 MG TABLET PO PRN (20:18)
[2019-01-22] MEDS: *HR* OxyCODONE Immed Rel 5 MG TABLET PO PRN ×2 (01:37→15:15)
[2019-01-22] MEDS: *HR* Enoxaparin 40 MG/0.4 ML SYRINGE SQ SCH (05:06)
[2019-01-22] MEDS: Insulin LISPRO 300 UNITS/3 ML VIAL SQ SCH ×4 (08:30→21:14)
[2019-01-22] MEDS: Fluconazole 100 MG TABLET PO SCH (08:30)
[2019-01-22] MEDS: Sulfamethoxazole/Trimeth DS 1 EACH TABLET PO SCH ×2 (08:30→20:20)
[2019-01-22] MEDS: Sennosides/Docusate Sodium TABLET PO SCH ×2 (08:30→20:19)
[2019-01-22] MEDS: BuPROPion XL (24 HR) 150 MG TABLET PO SCH (08:30)
[2019-01-22] MEDS: Bisoprolol/HCTZ 10/6.25 TABLET PO SCH (08:30)
[2019-01-22] MEDS: *HR* Glimepiride 4 MG TABLET PO SCH (08:30)
[2019-01-22] MEDS: Trolamine Salicylate/Aloe Vera 35.4 GM TUBE TP SCH (08:31)
--- NOTE | 2019-01-22 11:08 | Internal Med Progress Note ---
Date of Encounter: 01/22/19 Time of Encounter: 11:05 - Assessment and plan (1) Thoracic vertebral fracture Current Visit: Yes Status: Acute Assessment and plan: No acute issues. Patient continues with slight discomfort to upper back during mobilization, but states that her pain has been well tolerable with current medications. Surgical incision appears healthy and intact. Denies any radicular symptoms. We will continue with current therapy Qualifiers: Encounter type: subsequent encounter Thoracic vertebra fracture level: unspecified thoracic vertebra Fracture type: closed Fracture morphology: burst- stable Fracture healing: with routine healing Qualified Code(s): S22.001D - Stable burst fracture of unspecified thoracic vertebra, subsequent encounter for fracture with routine healing (2) Multiple rib fractures Current Visit: Yes Status: Acute Assessment and plan: No acute issues. Patient denies any dyspnea, but does state that she continues to have slight discomfort during deep inspiration. No rub or crepitus noted. We will continue with current therapy and medications. Qualifiers: Encounter type: subsequent encounter Fracture type: closed Laterality: bilateral Fracture healing: with routine healing Qualified Code(s): S22.43XD - Multiple fractures of ribs, bilateral, subsequent encounter for fracture with routine healing (3) Bilateral scapular fractures Current Visit: Yes Status: Acute Assessment and plan: No acute issues. Patient continues with complaints of pain to bilateral shoulders during range of motion. States pain is tolerable with current medications. We will continue with current therapy Qualifiers: Encounter type: subsequent encounter Fracture type: closed Fracture healing: with routine healing Qualified Code(s): S42.101D - Fracture of unspecified part of scapula, right shoulder, subsequent encounter for fracture with routine healing; S42.102D - Fracture of unspecified part of scapula, left shoulder, subsequent encounter for fracture with routine healing (4) Subdural hematoma Current Visit: Yes Status: Acute Assessment and plan: No acute issues. Patient's neurological exam remains unchanged per medical records. Patient continues with some difficulty with visual focus, but states that is a chronic issue. We will continue to monitor and continue with current therapy. (5) Hypertension, essential Current Visit: Yes Status: Chronic Assessment and plan: Vital signs have remained stable during her stay. We will continue with current medications (6) Insulin-requiring or dependent type II diabetes mellitus Current Visit: Yes Status: Chronic Assessment and plan: No acute issues. Patient's glucoses were better controlled over the past few days with most readings less than 150. We will continue with current coverage - Time Spent With Patient less than 15 minutes - Subjective Interval history: Impression appears relaxed and currently denies any dyspnea but states some discomfort to bilateral shoulders during range of motion of arms while participating in exam. States that her pain has been tolerable. Patient states she continues to have some difficulty with vision on focusing, which she status been a chronic issue prior to her admission. Patient states she continues to have slight discomfort to her upper back during mobilization, but states that her pain is tolerable. Denies any radicular symptoms. Denies any dysuria - Constitutional Vitals: Temp Pulse Resp BP Pulse Ox 97.7 F 68 18 152/69 96 01/22/19 06:41 01/22/19 06:41 01/22/19 06:41 01/22/19 06:41 01/22/19 06:41 General appearance: Present: cooperative, A&O X 3, pleasant, no acute distress, answers questions appropriately - Head Head exam: Present: atraumatic, normocephalic - Eye Eye exam: Present: PERRL, conjuntiva pink, sclera anicteric Pupils: Present: PERRL - Neck Neck exam general surgery: Present: supple, trachea midline. Absent: lymphadenopathy - Respiratory Respiratory exam: Present: decreased breath sounds, CTAB. Absent: accessory muscle use, rales, rhonchi, wheezes - Cardiovascular Cardiovascular exam: Present: RRR, +S1, +S2. Absent: diastolic murmur, gallop, rubs, systolic murmur - GI/Abdominal GI/Abdominal exam: Present: normal bowel sounds, soft, no peritoneal signs. Absent: distended, tenderness - Extremities Exam Extremities exam: Present: warm, radial pulses palpable and symmetrical. Absent: calf tenderness, cyanotic, pedal edema - Back Exam Additional comments: Thoracic surgical incision remains dry and intact and appears healthy - Neurological Exam Neurological exam: Present: CN II-XII intact, oriented X3, no focal deficits. Absent: pronater drift, facial droop, speech deficit - Skin Skin exam: Present: dry, intact Internal Medicine: Result - Labs CBC & Chem 7: 01/19/19 04:03 01/19/19 04:03 Consult Discharge Plan - Plan Referrals: Eusebio Walker MD [Primary Care Provider] -
[2019-01-22] MEDS: Nystatin POWDER 30 GM BOTTLE TP SCH ×2 (12:51→20:20)
[2019-01-22] MEDS: Insulin DETEMIR 100 UNIT/ML X5UNITS SQ SCH (17:42)
[2019-01-22] MEDS: Acetaminophen 325 MG TABLET PO PRN (17:43)
[2019-01-23] MEDS: *HR* Enoxaparin 40 MG/0.4 ML SYRINGE SQ SCH (04:47)
[2019-01-23] MEDS: Insulin LISPRO 300 UNITS/3 ML VIAL SQ SCH ×4 (07:57→20:42)
[2019-01-23] MEDS: Sulfamethoxazole/Trimeth DS 1 EACH TABLET PO SCH ×2 (08:02→20:34)
[2019-01-23] MEDS: Bisoprolol/HCTZ 10/6.25 TABLET PO SCH (08:03)
[2019-01-23] MEDS: Sennosides/Docusate Sodium TABLET PO SCH ×2 (08:03→20:34)
[2019-01-23] MEDS: Fluconazole 100 MG TABLET PO SCH (08:03)
[2019-01-23] MEDS: BuPROPion XL (24 HR) 150 MG TABLET PO SCH (08:03)
[2019-01-23] MEDS: *HR* Glimepiride 4 MG TABLET PO SCH (08:03)
[2019-01-23] MEDS: Trolamine Salicylate/Aloe Vera 35.4 GM TUBE TP SCH (09:18)
[2019-01-23] MEDS: Nystatin POWDER 30 GM BOTTLE TP SCH ×2 (09:41→20:35)
[2019-01-23 09:49] LABS: Alanine Aminotransferase 14 Units/L (7-52); Albumin 3.7 g/dL (3.5-5.7); Albumin/Globulin Ratio 1.5 (1.1-2.2); Alkaline Phosphatase 117 Units/L (34-104); Aspartate Amino Transferase 18 Units/L (13-39); BUN/Creatinine Ratio 22 (6-26); Bilirubin,Total 0.5 mg/dL (0.3-1.0); Blood Urea Nitrogen 22 mg/dL (8-23); Calcium 8.6 mg/dL (8.6-10.3); Carbon Dioxide 25 mEq/L (23-29); Chloride 97 mEq/L (98-107); Globulin 2.4 g/dL (2.4-3.5); Glucose 263 mg/dL (70-105); Osmolality,Calculated 288 (280-300); Potassium 4.1 mEq/L (3.5-5.1); Sodium 133 mEq/L (136-145); Total Protein 6.1 g/dL (6.4-8.9); eGFR For African Americans > 60 (> 60); eGFR For Non-African Americans 52 (> 60)
[2019-01-23 09:52] LABS: Basophils # 0.1 K/mcL (0.0-0.2); Basophils % 0.4 %; Eosinophils % 0.1 %; Hematocrit 30.4 % (35.3-44.9); Hemoglobin 9.8 g/dL (11.5-15.4); Immature Granulocytes % 0.7 % (0-4); Lymphocytes # 1.3 K/mcL (0.6-4.6); Lymphocytes % 7.5 %; Mean Corpuscular HGB Conc 32.2 g/dL (31.6-35.5); Mean Corpuscular Hemoglobin 31.4 pg (28.0-33.3); Mean Corpuscular Volume 97.4 fL (83.0-100.0); Mean Platelet Volume 10.4 fL (9.4-12.4); Monocytes # 0.8 K/mcL (0.0-1.3); Monocytes % 4.7 %; Neutrophils # 15.2 K/mcL (1.6-8.9); Platelet Count 319 K/mcL (140-400); Red Blood Count 3.12 M/mcL (3.82-4.97); Red Cell Distribution Width 15.6 % (11.5-14.5); Segmented Neutrophils % 86.6 %; White Blood Count 17.6 K/mcL (4.3-11.1)
--- NOTE | 2019-01-23 10:34 | Internal Med Progress Note ---
Date of Encounter: 01/23/19 Time of Encounter: 10:32 - Assessment and plan (1) Thoracic vertebral fracture Current Visit: Yes Status: Acute Assessment and plan: No acute issues. Patient continues with slight discomfort to upper back during mobilization, but states that her pain has been well tolerable with current medications. Surgical incision appears healthy and intact. Denies any radicular symptoms. We will continue with current therapy Qualifiers: Encounter type: subsequent encounter Thoracic vertebra fracture level: unspecified thoracic vertebra Fracture type: closed Fracture morphology: burst- stable Fracture healing: with routine healing Qualified Code(s): S22.001D - Stable burst fracture of unspecified thoracic vertebra, subsequent encounter for fracture with routine healing (2) Multiple rib fractures Current Visit: Yes Status: Acute Assessment and plan: No acute issues. Patient denies any dyspnea, but does state that she continues to have slight discomfort during deep inspiration. No rub or crepitus noted. We will continue with current therapy and medications. Qualifiers: Encounter type: subsequent encounter Fracture type: closed Laterality: bilateral Fracture healing: with routine healing Qualified Code(s): S22.43XD - Multiple fractures of ribs, bilateral, subsequent encounter for fracture with routine healing (3) Bilateral scapular fractures Current Visit: Yes Status: Acute Assessment and plan: No acute issues. Patient continues with complaints of pain to bilateral shoulders during range of motion. States pain is tolerable with current medications. We will continue with current therapy Qualifiers: Encounter type: subsequent encounter Fracture type: closed Fracture healing: with routine healing Qualified Code(s): S42.101D - Fracture of unspecified part of scapula, right shoulder, subsequent encounter for fracture with routine healing; S42.102D - Fracture of unspecified part of scapula, left shoulder, subsequent encounter for fracture with routine healing (4) Subdural hematoma Current Visit: Yes Status: Acute Assessment and plan: No acute issues. Patient's neurological exam remains unchanged per medical records. Patient continues with some difficulty with visual focus, but states that is a chronic issue. We will continue to monitor and continue with current therapy. (5) Hypertension, essential Current Visit: Yes Status: Chronic Assessment and plan: Vital signs have remained stable during her stay. We will continue with current medications (6) Insulin-requiring or dependent type II diabetes mellitus Current Visit: Yes Status: Chronic Assessment and plan: No acute issues. Patient's glucoses were better controlled over the past few days with most readings less than 150. We will continue with current coverage SNOMED Code(s): [id number] (7) Constipation Current Visit: Yes Status: Acute Assessment and plan: Patient reportedly has not had a BM in several days. Patient denies any abdominal cramping or discomforts. Will evaluate patient's scheduled laxatives and start on MiraLAX Qualifiers: Constipation type: unspecified constipation type Qualified Code(s): K59.00 - Constipation, unspecified - Time Spent With Patient less than 15 minutes - Subjective Interval history: Patient appears relaxed and states that her pain is better controlled today. Patient states she continues to have some pain to bilateral shoulders during range of motion. Patient states that therapy has been progressing well. Patient reports patient has not had a BM in several days. - Constitutional Vitals: Temp Pulse Resp BP Pulse Ox 97.8 F 70 16 135/82 97 01/23/19 07:19 01/23/19 07:19 01/23/19 07:19 01/23/19 07:19 01/23/19 07:19 General appearance: Present: cooperative, A&O X 3, pleasant, no acute distress, answers questions appropriately - Head Head exam: Present: atraumatic, normocephalic - Eye Eye exam: Present: PERRL, conjuntiva pink, sclera anicteric Pupils: Present: PERRL Additional comments: Patient with a history of being legally blind. - Neck Neck exam general surgery: Present: supple, trachea midline. Absent: lymphadenopathy - Respiratory Respiratory exam: Present: CTAB. Absent: accessory muscle use, rales, rhonchi, wheezes - Cardiovascular Cardiovascular exam: Present: RRR, +S1, +S2. Absent: diastolic murmur, gallop, rubs, systolic murmur - GI/Abdominal GI/Abdominal exam: Present: normal bowel sounds, soft, no peritoneal signs. Absent: distended, tenderness - Extremities Exam Extremities exam: Present: warm, radial pulses palpable and symmetrical. Absent: calf tenderness, cyanotic, pedal edema Additional comments: Complaints of tenderness during range of motion of bilateral shoulders - Back Exam Additional comments: Surgical incision appears healthy - Neurological Exam Neurological exam: Present: CN II-XII intact, oriented X3, no focal deficits. Absent: pronater drift, facial droop, speech deficit - Skin Skin exam: Present: dry, intact Internal Medicine: Result - Labs CBC & Chem 7: 01/23/19 09:30 01/23/19 09:23 Labs: Short CBC 01/23/19 Range/Units 09:30 WBC 17.6 H (4.3-11.1) K/mcL Hgb 9.8 L (11.5-15.4) g/dL Hct 30.4 L (35.3-44.9) % Plt Count 319 (140-400) K/mcL Neutrophils # 15.2 H (1.6-8.9) K/mcL BMP 01/23/19 09:23 Sodium 133 L Potassium 4.1 Chloride 97 L Carbon Dioxide 25 BUN 22 Creatinine 1.01 Glucose 263 H Calcium 8.6 Liver Function 01/23/19 Range/Units 09:23 Total Bilirubin 0.5 (0.3-1.0) mg/dL AST 18 (13-39) Units/L ALT 14 (7-52) Units/L Alkaline Phosphatase 117 H (34-104) Units/L Albumin 3.7 (3.5-5.7) g/dL Consult Discharge Plan - Plan Referrals: Eusebio Walker MD [Primary Care Provider] -
[2019-01-23] MEDS: Insulin DETEMIR 100 UNIT/ML X5UNITS SQ SCH (17:08)
[2019-01-23] MEDS: Ondansetron ODT 4 MG TAB.RAPDIS SL PRN (17:29)
[2019-01-23] MEDS ORDERED: Sulfamethoxazole/Trimeth DS 1 EACH TABLET PO SCH (20:00)
[2019-01-24] MEDS: Acetaminophen 325 MG TABLET PO PRN ×3 (02:03→20:32)
[2019-01-24] MEDS: *HR* Enoxaparin 40 MG/0.4 ML SYRINGE SQ SCH (04:24)
[2019-01-24] MEDS: Ondansetron ODT 4 MG TAB.RAPDIS SL PRN (07:45)
[2019-01-24] MEDS: Insulin LISPRO 300 UNITS/3 ML VIAL SQ SCH ×4 (08:33→20:35)
[2019-01-24] MEDS: Sulfamethoxazole/Trimeth DS 1 EACH TABLET PO SCH ×2 (08:34→20:33)
[2019-01-24] MEDS: Trolamine Salicylate/Aloe Vera 35.4 GM TUBE TP SCH (08:35)
[2019-01-24] MEDS: *HR* Glimepiride 4 MG TABLET PO SCH (08:35)
[2019-01-24] MEDS: Fluconazole 100 MG TABLET PO SCH (08:36)
[2019-01-24] MEDS: BuPROPion XL (24 HR) 150 MG TABLET PO SCH (08:36)
[2019-01-24] MEDS: Sennosides/Docusate Sodium TABLET PO SCH ×2 (08:36→20:33)
[2019-01-24] MEDS: Bisoprolol/HCTZ 10/6.25 TABLET PO SCH (08:37)
[2019-01-24] MEDS: Nystatin POWDER 30 GM BOTTLE TP SCH ×2 (09:10→20:38)
--- NOTE | 2019-01-24 10:06 | Internal Med Progress Note ---
Date of Encounter: 01/24/19 Time of Encounter: 10:02 - Assessment and plan (1) Thoracic vertebral fracture Current Visit: Yes Status: Acute Assessment and plan: Status post T-3 to T8 fusion. Pain controlled. Follow up with surgeon as scheduled. Qualifiers: Encounter type: subsequent encounter Thoracic vertebra fracture level: unspecified thoracic vertebra Fracture type: closed Fracture morphology: burst- stable Fracture healing: with routine healing Qualified Code(s): S22.001D - Stable burst fracture of unspecified thoracic vertebra, subsequent encounter for fracture with routine healing (2) Multiple rib fractures Current Visit: Yes Status: Acute Assessment and plan: Monitor. Pain controlled with current medication. Qualifiers: Encounter type: subsequent encounter Fracture type: closed Laterality: bilateral Fracture healing: with routine healing Qualified Code(s): S22.43XD - Multiple fractures of ribs, bilateral, subsequent encounter for fracture with routine healing (3) Bilateral scapular fractures Current Visit: Yes Status: Acute Qualifiers: Encounter type: subsequent encounter Fracture type: closed Fracture healing: with routine healing Qualified Code(s): S42.101D - Fracture of unspecified part of scapula, right shoulder, subsequent encounter for fracture with routine healing; S42.102D - Fracture of unspecified part of scapula, left shoulder, subsequent encounter for fracture with routine healing (4) Subdural hematoma Current Visit: Yes Status: Acute Assessment and plan: Monitor. Seems to be resolving. (5) Hypertension, essential Current Visit: Yes Status: Chronic Assessment and plan: Controlled with current medication. Monitor blood pressure. (6) Insulin-requiring or dependent type II diabetes mellitus Current Visit: Yes Status: Chronic Assessment and plan: Controlled with insulin. Monitor fingerstick blood sugar. Will adjust medicines as necessary. (7) Depression Current Visit: Yes Status: Acute Assessment and plan: Controlled with current medication. Monitor. Qualifiers: Depression Type: other depression Qualified Code(s): F32.89 - Other specified depressive episodes (8) Blind right eye Current Visit: Yes Status: Acute Qualifiers: Left eye visual impairment category: left - unspecified impairment Qualified Code(s): H54.40 - Blindness, one eye, unspecified eye (9) UTI (urinary tract infection) Current Visit: Yes Status: Acute Assessment and plan: Bactrim DS and diflucan. urinary urgency improving. denies any other symptoms. Qualifiers: Urinary tract infection type: site unspecified Hematuria presence: without hematuria Qualified Code(s): N39.0 - Urinary tract infection, site not specified (10) Intertrigo Current Visit: Yes Status: Acute - Subjective Interval history: Participating well with therapy. On Bactrim and Diflucan for UTI. States pain is controlled with current medication. States bowels are moving as normal. Denies fever, chills, nausea vomiting or diarrhea, shortness of breath or chest pain. Complaining of feeling gassy today. Encourage to take gas-x and ambulate. - Constitutional Vitals: Temp Pulse Resp BP Pulse Ox 98.8 F 69 16 122/64 96 01/24/19 07:02 01/24/19 07:02 01/24/19 07:02 01/24/19 07:02 01/24/19 07:02 General appearance: Present: cooperative, A&O X 3, pleasant, no acute distress, answers questions appropriately - Head Head exam: Present: atraumatic, normocephalic - Eye Eye exam: Present: PERRL, conjuntiva pink, sclera anicteric Pupils: Present: PERRL - Neck Neck exam general surgery: Present: supple, trachea midline. Absent: lymphadenopathy - Respiratory Respiratory exam: Present: CTAB. Absent: accessory muscle use, rales, rhonchi, wheezes - Cardiovascular Cardiovascular exam: Present: RRR, +S1, +S2. Absent: diastolic murmur, gallop, rubs, systolic murmur - GI/Abdominal GI/Abdominal exam: Present: normal bowel sounds, soft, no peritoneal signs. Absent: distended, tenderness - Extremities Exam Extremities exam: Present: warm, radial pulses palpable and symmetrical. Absent: calf tenderness, cyanotic, pedal edema - Neurological Exam Neurological exam: Present: CN II-XII intact, oriented X3, no focal deficits. Absent: pronater drift, facial droop, speech deficit - Skin Skin exam: Present: dry, intact Internal Medicine: Result - Labs CBC & Chem 7: 01/23/19 09:30 01/23/19 09:23 Labs: Short CBC 01/23/19 Range/Units 09:30 WBC 17.6 H (4.3-11.1) K/mcL Hgb 9.8 L (11.5-15.4) g/dL Hct 30.4 L (35.3-44.9) % Plt Count 319 (140-400) K/mcL Neutrophils # 15.2 H (1.6-8.9) K/mcL Consult Discharge Plan - Plan Referrals: Eusebio Walker MD [Primary Care Provider] -
[2019-01-24] MEDS ORDERED: Bisacodyl 10 MG RECTAL SUPPOSITORY RC ONE (11:31)
[2019-01-24 13:32] LABS: Basophils # 0.1 K/mcL (0.0-0.2); Basophils % 0.4 %; Eosinophils % 0.2 %; Hematocrit 31.9 % (35.3-44.9); Hemoglobin 10.2 g/dL (11.5-15.4); Immature Granulocytes % 0.4 % (0-4); Lymphocytes # 1.4 K/mcL (0.6-4.6); Mean Corpuscular Hemoglobin 31.1 pg (28.0-33.3); Mean Corpuscular Volume 97.3 fL (83.0-100.0); Mean Platelet Volume 10.3 fL (9.4-12.4); Monocytes # 0.7 K/mcL (0.0-1.3); Monocytes % 4.8 %; Neutrophils # 13.1 K/mcL (1.6-8.9); Platelet Count 326 K/mcL (140-400); Red Blood Count 3.28 M/mcL (3.82-4.97); Red Cell Distribution Width 15.8 % (11.5-14.5); Segmented Neutrophils % 85.2 %; White Blood Count 15.4 K/mcL (4.3-11.1)
[2019-01-24] MEDS: Insulin DETEMIR 100 UNIT/ML X5UNITS SQ SCH (18:16)
[2019-01-24] MEDS: Melatonin 3 MG TABLET PO PRN (20:33)
[2019-01-25] MEDS: *HR* OxyCODONE Immed Rel 5 MG TABLET PO PRN ×2 (00:21→21:25)
[2019-01-25] MEDS: *HR* Enoxaparin 40 MG/0.4 ML SYRINGE SQ SCH (05:37)
[2019-01-25] MEDS: BuPROPion XL (24 HR) 150 MG TABLET PO SCH (09:13)
[2019-01-25] MEDS: Fluconazole 100 MG TABLET PO SCH (09:13)
[2019-01-25] MEDS: Bisoprolol/HCTZ 10/6.25 TABLET PO SCH (09:13)
[2019-01-25] MEDS: *HR* Glimepiride 4 MG TABLET PO SCH (09:13)
[2019-01-25] MEDS: Trolamine Salicylate/Aloe Vera 35.4 GM TUBE TP SCH (09:14)
[2019-01-25] MEDS: Sulfamethoxazole/Trimeth DS 1 EACH TABLET PO SCH ×2 (09:14→21:24)
[2019-01-25] MEDS: Nystatin POWDER 30 GM BOTTLE TP SCH ×2 (09:14→21:26)
[2019-01-25] MEDS: Insulin LISPRO 300 UNITS/3 ML VIAL SQ SCH ×4 (09:15→21:11)
[2019-01-25] MEDS: Sennosides/Docusate Sodium TABLET PO SCH ×2 (09:15→21:12)
--- NOTE | 2019-01-25 09:38 | Internal Med Progress Note ---
Date of Encounter: 01/25/19 Time of Encounter: 09:38 - Assessment and plan (1) Thoracic vertebral fracture Current Visit: Yes Status: Acute Assessment and plan: Patient is doing well with improvement in pain. Qualifiers: Encounter type: subsequent encounter Thoracic vertebra fracture level: unspecified thoracic vertebra Fracture type: closed Fracture morphology: burst- stable Fracture healing: with routine healing Qualified Code(s): S22.001D - Stable burst fracture of unspecified thoracic vertebra, subsequent encounter for fracture with routine healing (2) Multiple rib fractures Current Visit: Yes Status: Acute Assessment and plan: Therapies continued. Qualifiers: Encounter type: subsequent encounter Fracture type: closed Laterality: bilateral Fracture healing: with routine healing Qualified Code(s): S22.43XD - Multiple fractures of ribs, bilateral, subsequent encounter for fracture with routine healing (3) Bilateral scapular fractures Current Visit: Yes Status: Acute Qualifiers: Encounter type: subsequent encounter Fracture type: closed Fracture healing: with routine healing Qualified Code(s): S42.101D - Fracture of unspecified part of scapula, right shoulder, subsequent encounter for fracture with routine healing; S42.102D - Fracture of unspecified part of scapula, left shoulder, subsequent encounter for fracture with routine healing (4) Pneumothorax Current Visit: Yes Status: Acute Assessment and plan: No clinical findings. Qualifiers: Pneumothorax type: unspecified pneumothorax Qualified Code(s): J93.9 - Pneumothorax, unspecified (5) Subdural hematoma Current Visit: Yes Status: Acute Assessment and plan: Clinically, resolved. (6) Hypertension, essential Current Visit: Yes Status: Chronic Assessment and plan: Stable. (7) Insulin-requiring or dependent type II diabetes mellitus Current Visit: Yes Status: Chronic Assessment and plan: Following with current regimen and sliding scale insulin. (8) Depression Current Visit: Yes Status: Acute Assessment and plan: Clinically stable. Qualifiers: Depression Type: other depression Qualified Code(s): F32.89 - Other specified depressive episodes (9) Blind right eye Current Visit: Yes Status: Acute Qualifiers: Left eye visual impairment category: left - unspecified impairment Qualified Code(s): H54.40 - Blindness, one eye, unspecified eye - Subjective Interval history: Patient is without complaint except tired. She is moving her bowels. She had some nausea this morning but this is better controlled now. Discussed care with other providers and/or nursing. Patient has no complaint of chest discomfort, dyspnea, orthopnea, palpitations, nausea or vomiting, constipation or diarrhea, other changes in bowel habits, difficulty with urination, rash or itching, or other new complaints, except as mentioned above. Review of systems is otherwise negative. - Constitutional Vitals: Temp Pulse Resp BP Pulse Ox 97.8 F 74 15 143/74 95 01/25/19 06:58 01/25/19 06:58 01/25/19 06:58 01/25/19 06:58 01/25/19 06:58 Exam: Examination: (Except as mentioned above): General: In no apparent distress. Alert and oriented 3. Nondiaphoretic. Head: Atraumatic and normocephalic. Respiratory: No use of accessory muscles. Lungs are clear throughout. Normal airflow. Cardiovascular: Regular rate and rhythm without murmur appreciated. Abdomen: Bowel sounds are normal. No hepatosplenomegaly mass or tenderness kt reciated. Obese and therefore difficult to palpate deeply. Patient is examined upright in chair and this also limits exam. Extremities: No cyanosis clubbing or edema. Skin: Warm and non-diaphoretic with no new lesions noted. Internal Medicine: Result - Labs CBC & Chem 7: 01/24/19 13:04 01/23/19 09:23 Labs: Short CBC 01/24/19 Range/Units 13:04 WBC 15.4 H (4.3-11.1) K/mcL Hgb 10.2 L (11.5-15.4) g/dL Hct 31.9 L (35.3-44.9) % Plt Count 326 (140-400) K/mcL Neutrophils # 13.1 H (1.6-8.9) K/mcL Consult Discharge Plan - Plan Referrals: Eusebio Walker MD [Primary Care Provider] -
[2019-01-25] MEDS: Insulin DETEMIR 100 UNIT/ML X5UNITS SQ SCH (18:01)
[2019-01-25] MEDS: Melatonin 3 MG TABLET PO PRN (21:25)
[2019-01-26 04:47] LABS: BUN/Creatinine Ratio 29 (6-26); Blood Urea Nitrogen 26 mg/dL (8-23); Calcium 8.3 mg/dL (8.6-10.3); Carbon Dioxide 24 mEq/L (23-29); Chloride 101 mEq/L (98-107); Glucose 101 mg/dL (70-105); Osmolality,Calculated 279 (280-300); Potassium 4.2 mEq/L (3.5-5.1); Sodium 132 mEq/L (136-145); eGFR For African Americans > 60 (> 60); eGFR For Non-African Americans 59 (> 60)
[2019-01-26] MEDS: *HR* Enoxaparin 40 MG/0.4 ML SYRINGE SQ SCH (06:50)
[2019-01-26] MEDS: Nystatin POWDER 30 GM BOTTLE TP SCH ×2 (09:30→20:36)
[2019-01-26] MEDS: *HR* Glimepiride 4 MG TABLET PO SCH (09:32)
[2019-01-26] MEDS: Sennosides/Docusate Sodium TABLET PO SCH ×2 (09:32→20:36)
[2019-01-26] MEDS: BuPROPion XL (24 HR) 150 MG TABLET PO SCH (09:32)
[2019-01-26] MEDS: Bisoprolol/HCTZ 10/6.25 TABLET PO SCH (09:32)
[2019-01-26] MEDS: Trolamine Salicylate/Aloe Vera 35.4 GM TUBE TP SCH (10:30)
[2019-01-26] MEDS: Insulin LISPRO 300 UNITS/3 ML VIAL SQ SCH ×4 (10:30→20:30)
--- NOTE | 2019-01-26 12:17 | Internal Med Progress Note ---
Date of Encounter: 01/26/19 Time of Encounter: 12:14 - Assessment and plan (1) Thoracic vertebral fracture Current Visit: Yes Status: Acute Assessment and plan: Patient with slow improvement. Qualifiers: Encounter type: subsequent encounter Thoracic vertebra fracture level: unspecified thoracic vertebra Fracture type: closed Fracture morphology: burst- stable Fracture healing: with routine healing Qualified Code(s): S22.001D - Stable burst fracture of unspecified thoracic vertebra, subsequent encounter for fracture with routine healing (2) Multiple rib fractures Current Visit: Yes Status: Acute Assessment and plan: Again, seemed to improve. Qualifiers: Encounter type: subsequent encounter Fracture type: closed Laterality: bilateral Fracture healing: with routine healing Qualified Code(s): S22.43XD - Multiple fractures of ribs, bilateral, subsequent encounter for fracture with routine healing (3) Bilateral scapular fractures Current Visit: Yes Status: Acute Qualifiers: Encounter type: subsequent encounter Fracture type: closed Fracture healing: with routine healing Qualified Code(s): S42.101D - Fracture of unspecified part of scapula, right shoulder, subsequent encounter for fracture with routine healing; S42.102D - Fracture of unspecified part of scapula, left shoulder, subsequent encounter for fracture with routine healing (4) Pneumothorax Current Visit: Yes Status: Acute Assessment and plan: No current signs. Qualifiers: Pneumothorax type: unspecified pneumothorax Qualified Code(s): J93.9 - Pneumothorax, unspecified (5) Subdural hematoma Current Visit: Yes Status: Acute Assessment and plan: She seems to be resolving. (6) Hypertension, essential Current Visit: Yes Status: Chronic Assessment and plan: Adequate control. (7) Insulin-requiring or dependent type II diabetes mellitus Current Visit: Yes Status: Chronic Assessment and plan: Moderate control. Will continue current regimen and sliding-scale insulin. (8) Depression Current Visit: Yes Status: Acute Assessment and plan: Clinically, stable. Qualifiers: Depression Type: other depression Qualified Code(s): F32.89 - Other specified depressive episodes (9) Blind right eye Current Visit: Yes Status: Acute Qualifiers: Left eye visual impairment category: left - unspecified impairment Qualified Code(s): H54.40 - Blindness, one eye, unspecified eye (10) Constipation Current Visit: Yes Status: Acute Assessment and plan: Will discuss with nursing and consider laxative or suppository or both. Qualifiers: Constipation type: unspecified constipation type Qualified Code(s): K59.00 - Constipation, unspecified - Subjective Interval history: Patient is not feeling well because she has been "burping for days.". She denies abdominal pain but states she has not moved her bowels in several days in fact she cannot remember when she moved him last. She denies other problems. No lightheadedness or dizziness. Discussed care with other providers and/or nursing. Patient has no complaint of chest discomfort, dyspnea, orthopnea, palpitations, nausea or vomiting, constipation or diarrhea, other changes in bowel habits, difficulty with urination, rash or itching, or other new complaints, except as mentioned above. Review of systems is otherwise negative. - Constitutional Vitals: Temp Pulse Resp BP Pulse Ox 97.8 F 83 15 144/63 95 01/26/19 07:49 01/26/19 07:49 01/26/19 07:49 01/26/19 07:49 01/26/19 07:49 Exam: Examination: (Except as mentioned above): General: In no apparent distress. Alert and oriented 3. Nondiaphoretic. Head: Atraumatic and normocephalic. Respiratory: No use of accessory muscles. Lungs are clear throughout. Normal airflow. Cardiovascular: Regular rate and rhythm without murmur appreciated. Heartbeat is totally regular. Abdomen: Bowel sounds are normal. No hepatosplenomegaly mass or tenderness appreciated. Obese and therefore difficult to palpate deeply. Patient is examined upright in chair and this also limits exam. Extremities: No cyanosis clubbing or edema. Skin: Warm and non-diaphoretic with no new lesions noted. Internal Medicine: Result - Labs CBC & Chem 7: 01/24/19 13:04 01/26/19 04:21 Labs: BMP 01/26/19 04:21 Sodium 132 L Potassium 4.2 Chloride 101 Carbon Dioxide 24 BUN 26 H Creatinine 0.91 Glucose 101 Calcium 8.3 L Consult Discharge Plan - Plan Referrals: Eusebio Walker MD [Primary Care Provider] -
[2019-01-26] MEDS ORDERED: Bisacodyl 10 MG RECTAL SUPPOSITORY RC PRN (12:52)
[2019-01-26] MEDS: Insulin DETEMIR 100 UNIT/ML X5UNITS SQ SCH (18:01)
[2019-01-26] MEDS: Melatonin 3 MG TABLET PO PRN (20:27)
[2019-01-27] MEDS: *HR* Enoxaparin 40 MG/0.4 ML SYRINGE SQ SCH (04:57)
[2019-01-27] MEDS: Insulin LISPRO 300 UNITS/3 ML VIAL SQ SCH ×4 (07:49→21:21)
[2019-01-27] MEDS: *HR* Glimepiride 4 MG TABLET PO SCH (08:51)
[2019-01-27] MEDS: Bisoprolol/HCTZ 10/6.25 TABLET PO SCH (08:52)
[2019-01-27] MEDS: Sennosides/Docusate Sodium TABLET PO SCH ×2 (08:52→21:21)
[2019-01-27] MEDS: BuPROPion XL (24 HR) 150 MG TABLET PO SCH (08:52)
--- NOTE | 2019-01-27 09:25 | Internal Med Progress Note ---
Date of Encounter: 01/27/19 Time of Encounter: 09:23 - Assessment and plan (1) Thoracic vertebral fracture Current Visit: Yes Status: Acute Assessment and plan: No acute issues. Patient continues with slight discomfort to upper back during mobilization, but states that her pain has been well tolerable with current medications. Surgical incision appears healthy and intact. Denies any radicular symptoms. We will continue with current therapy Qualifiers: Encounter type: subsequent encounter Thoracic vertebra fracture level: unspecified thoracic vertebra Fracture type: closed Fracture morphology: burst- stable Fracture healing: with routine healing Qualified Code(s): S22.001D - Stable burst fracture of unspecified thoracic vertebra, subsequent encounter for fracture with routine healing (2) Multiple rib fractures Current Visit: Yes Status: Acute Assessment and plan: No acute issues. Patient denies any dyspnea, but does state that she continues to have slight discomfort during deep inspiration. No rub or crepitus noted. We will continue with current therapy and medications. Qualifiers: Encounter type: subsequent encounter Fracture type: closed Laterality: bilateral Fracture healing: with routine healing Qualified Code(s): S22.43XD - Multiple fractures of ribs, bilateral, subsequent encounter for fracture with routine healing (3) Bilateral scapular fractures Current Visit: Yes Status: Acute Assessment and plan: No acute issues. Patient continues with complaints of pain to bilateral shoulders during range of motion. States pain is tolerable with current medications. We will continue with current therapy Qualifiers: Encounter type: subsequent encounter Fracture type: closed Fracture healing: with routine healing Qualified Code(s): S42.101D - Fracture of unspecified part of scapula, right shoulder, subsequent encounter for fracture with routine healing; S42.102D - Fracture of unspecified part of scapula, left shoulder, subsequent encounter for fracture with routine healing (4) Subdural hematoma Current Visit: Yes Status: Acute Assessment and plan: No acute issues. Patient's neurological exam remains unchanged per medical records. Patient continues with some difficulty with visual focus, but states that is a chronic issue. We will continue to monitor and continue with current therapy. (5) Hypertension, essential Current Visit: Yes Status: Chronic Assessment and plan: Vital signs have remained stable during her stay. We will continue with current medications (6) Insulin-requiring or dependent type II diabetes mellitus Current Visit: Yes Status: Chronic Assessment and plan: No acute issues. Patient's glucoses were better controlled over the past few days with most readings less than 150. Patient's fasting glucose this morning was 70. We will continue with current coverage SNOMED Code(s): 927985093 - Time Spent With Patient less than 15 minutes - Subjective Interval history: Patient appears relaxed and states that her pain has been controlled with oral meds. Patient states she continues to have some pain to bilateral shoulders during range of motion. Patient states that therapy has been progressing well. Nurse reports the patient had what she calls a "spell", which is what she calls her episodes of anxiety. He states she did not follow this morning and after being examined per nursing she was found to have a glucose of 70. Patient was given some juice and afterwards stated she felt better - Constitutional Vitals: Temp Pulse Resp BP Pulse Ox 97.6 F 72 16 149/68 99 01/27/19 07:38 01/27/19 07:38 01/27/19 07:38 01/27/19 07:38 01/27/19 07:38 General appearance: Present: cooperative, A&O X 3, pleasant, no acute distress, answers questions appropriately - Head Head exam: Present: atraumatic, normocephalic - Eye Eye exam: Present: PERRL, conjuntiva pink, sclera anicteric Pupils: Present: PERRL Additional comments: Legally blind - Neck Neck exam general surgery: Present: supple, trachea midline. Absent: lymphadenopathy - Respiratory Respiratory exam: Present: decreased breath sounds, CTAB. Absent: accessory muscle use, rales, rhonchi, wheezes - Cardiovascular Cardiovascular exam: Present: RRR, +S1, +S2. Absent: diastolic murmur, gallop, rubs, systolic murmur - GI/Abdominal GI/Abdominal exam: Present: normal bowel sounds, soft, no peritoneal signs. Absent: distended, tenderness - Extremities Exam Extremities exam: Present: warm, radial pulses palpable and symmetrical. Absent: calf tenderness, cyanotic, pedal edema Additional comments: Complaints of bilateral shoulder pain during range of motion of shoulders - Back Exam Additional comments: Midline thoracic incision appears healthy - Neurological Exam Neurological exam: Present: CN II-XII intact, oriented X3, no focal deficits. Absent: pronater drift, facial droop, speech deficit - Skin Skin exam: Present: dry, intact Internal Medicine: Result - Labs CBC & Chem 7: 01/24/19 13:04 01/26/19 04:21 Consult Discharge Plan - Plan Referrals: Eusebio Walker MD [Primary Care Provider] -
--- NOTE | 2019-01-27 10:37 | Psychological Evaluation ---
Date of Encounter: 01/22/19 Time of Encounter: 09:00 History of Present Illness History of present illness: Ms. Carlos is an 83 year old female who was in her usual state of health until she fell, at home on 01/06/2019. She fell in the presence of family (her grandson) who thought she passed out. However, she denies syncope, to her knowledge. She had no palpitations, chest pain, diaphoresis, etc. After the fall, she had acute pain and was transferred for management at [facility]. She was found to have bilateral scapular body fractures, rib fractures, fractures of lumbar spine which underwent fusion surgery.They additionally noted moderate cognitive concerns. Past Medical History Medical history: Significant visual issues premorbidly and worse now. - Psychiatric History Psychiatric history: Reports: depression Additional Psychiatric History: Stated she had depression after loss of her 5 years ago. Home Medications and Allergies Acetaminophen [Tylenol] 650 mg PO Q4HR PRN 01/16/19 [History] Bisoprolol/HCTZ 10/6.25 [Ziac 10/6.25] 1 each PO DAILY 01/16/19 [History] BuPROPion [Wellbutrin] 150 mg PO DAILY 01/16/19 [History] Calcium 500 + Vit D Caplet 1 tab PO BID 01/16/19 [History] Docusate Sodium-Senna Tablet 1 tab PO BID 01/16/19 [History] Enoxaparin [Lovenox] 40 mg SQ DAILY 01/16/19 [History] Glimepiride [Amaryl] 4 mg PO DAILY 01/16/19 [History] Insulin Glargine [Lantus] 20 units SQ QPM 01/16/19 [History] Lidocaine [Aspercreme] 2 each TP DAILY 01/16/19 [History] Lisinopril 2.5 mg PO DAILY 01/16/19 [History] Metformin HCl [Glucophage Xr] 500 mg PO DAILY 01/16/19 [History] OxyCODONE Immed Rel 5 mg PO Q6HR PRN 01/16/19 [History] Allergy/AdvReac Type Severity Reaction Status Date / Time No Known Allergies Allergy Verified 01/06/19 15:03 Social History - Social History Social History: Pt is , 5 years, and lives alone. She has 3 adult children and 4 grandchildren, 5 great grandchildren. She was 67 years. She stated her daughter lives across the road and spends a fair amount of time with her 33 yo grandson. He takes her in to the unhairing inspector and restaurants. Her daughter pays her bills and grocery shops. The pt notes she cleans her home "gradually" and microwaves for meals. She spends days watching game shows. 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 - Tobacco Use Smoking Status: Never smoker - Alcohol Use Alcohol Use: none - Drug Use Drug Use: none Cognitive/Emotional Assessment - Cognitive Ability Attention Span Ability: Unable to Sustain Attention Verbal Communication Ability: Conversational Style Level of Alertness: Alert Orientation: Person, Place, Time Visual Spatial Deficit: Depth Perception, Position in Space, Spatial Relations Ability to Follow Directions: Fair Speech Pattern: Normal rate, Normal rhythm Immediate Recall: Unable to perform recall Additional Findings: Able to perform: 3/3 words after presentation and 0/3 after 5min no change with categorical cuing; 5 digits forward and 2 backward - confused woth the task request; unable to spell WORLD backwards; knew pres, previous pres, and governor; Unable to perform serial 3's from 20. She states she uses association to assist with recall. - Emotional Status Mood Description: Depressed Affect Description: Euthymic/stable Coping Ability: Unsure about ability to cope Additional Findings: States she is depressed due to pain since injury and previous depression was really grieving loss of . Assessment & Plan - Diagnosis (1) Neurocognitive disorder (2) Depression Qualifiers: Depression Type: other depression Qualified Code(s): F32.89 - Other specified depressive episodes - Prognosis Prognosis: Fair - Treatment Plan Treatment Plan/Recommendations: Will assist with development of coping strategies for increasing cognition and elevating depressed mood while adapting to changes in functioning since the fall. Procedures - Participants Therapy Participant: Patient - Session Time Session Start Time: 09:00 Session Stop Time: 09:30
[2019-01-27] MEDS: Trolamine Salicylate/Aloe Vera 35.4 GM TUBE TP SCH (13:51)
[2019-01-27] MEDS: Nystatin POWDER 30 GM BOTTLE TP SCH ×2 (13:52→21:21)
--- NOTE | 2019-01-27 15:31 | Rehab Psychology Progress Note ---
Date of Encounter: 01/27/19 Time of Encounter: 11:30 Subjective - Patient Report Patient Report: Stated she is despondent. Discussed ECF placement and this is understandable but fearful she can not return home. Dreaming of and sad he is not here to care for her. Sleep continues a complaint. Significant issues with adjusting. - Symptoms Symptoms: tearful. Objective - WHODAS Functional Impairment Concentration, Problem-solving, Communication: Moderate Self-Care: Moderate Social Functioning: Mild Community Involvement/Hobbies: Moderate - Comments Functional Status Comments: Displays lack of awareness of condition and safety concerns. Not adapting well. - Mental Status Mental Status Changes: OX#. [place] and difficulty with abstraction Assessment and Plan - Diagnosis (1) Neurocognitive disorder (2) Depression Qualifiers: Depression Type: other depression Qualified Code(s): F32.89 - Other specified depressive episodes - Response to Treatment Response to Treatment: Worse - Prognosis Prognosis: Fair - Treatment Plan Changes in Treatment Plan Goals: Focus on mood and discussed with MD to evaluate for medication management. Next Session Date: 02/05/19 Procedures - Intervention Interventions: Cognitive/Behavioral Therapy - Modality Modality: Psychotherapy 30 minutes - Participants Therapy Participant: Patient - Session Time Session Start Time: 11:30 Session Stop Time: 12:00
[2019-01-27] MEDS: Acetaminophen 325 MG TABLET PO PRN (16:26)
[2019-01-27] MEDS: Insulin DETEMIR 100 UNIT/ML X5UNITS SQ SCH (17:29)
[2019-01-27] MEDS: Melatonin 3 MG TABLET PO PRN (21:20)
[2019-01-28] MEDS: *HR* Enoxaparin 40 MG/0.4 ML SYRINGE SQ SCH (05:49)
[2019-01-28] MEDS: Insulin LISPRO 300 UNITS/3 ML VIAL SQ SCH ×3 (07:38→16:51)
[2019-01-28] MEDS: Acetaminophen 325 MG TABLET PO PRN (07:54)
[2019-01-28] MEDS: BuPROPion XL (24 HR) 150 MG TABLET PO SCH (08:18)
[2019-01-28] MEDS: Bisoprolol/HCTZ 10/6.25 TABLET PO SCH (08:18)
[2019-01-28] MEDS: Sennosides/Docusate Sodium TABLET PO SCH (08:19)
[2019-01-28] MEDS: Trolamine Salicylate/Aloe Vera 35.4 GM TUBE TP SCH (08:19)
[2019-01-28] MEDS: *HR* Glimepiride 4 MG TABLET PO SCH (08:19)
[2019-01-28] MEDS: Nystatin POWDER 30 GM BOTTLE TP SCH (08:20)
--- NOTE | 2019-01-28 10:06 | Internal Med Progress Note ---
Date of Encounter: 01/28/19 Time of Encounter: 10:04 - Assessment and plan (1) Thoracic vertebral fracture Current Visit: Yes Status: Acute Assessment and plan: Status post T-3 to T8 fusion. Pain controlled. Follow up with surgeon as scheduled. Qualifiers: Encounter type: subsequent encounter Thoracic vertebra fracture level: unspecified thoracic vertebra Fracture type: closed Fracture morphology: burst- stable Fracture healing: with routine healing Qualified Code(s): S22.001D - Stable burst fracture of unspecified thoracic vertebra, subsequent encounter for fracture with routine healing (2) Multiple rib fractures Current Visit: Yes Status: Acute Assessment and plan: Monitor. Pain controlled with current medication. Qualifiers: Encounter type: subsequent encounter Fracture type: closed Laterality: bilateral Fracture healing: with routine healing Qualified Code(s): S22.43XD - Multiple fractures of ribs, bilateral, subsequent encounter for fracture with routine healing (3) Bilateral scapular fractures Current Visit: Yes Status: Acute Qualifiers: Encounter type: subsequent encounter Fracture type: closed Fracture healing: with routine healing Qualified Code(s): S42.101D - Fracture of unspecified part of scapula, right shoulder, subsequent encounter for fracture with routine healing; S42.102D - Fracture of unspecified part of scapula, left shoulder, subsequent encounter for fracture with routine healing (4) Subdural hematoma Current Visit: Yes Status: Acute Assessment and plan: Monitor. Seems to be resolving. (5) Hypertension, essential Current Visit: Yes Status: Chronic Assessment and plan: Controlled with current medication. Monitor blood pressure. (6) Insulin-requiring or dependent type II diabetes mellitus Current Visit: Yes Status: Chronic Assessment and plan: Controlled with insulin. Monitor fingerstick blood sugar. Will adjust medicines as necessary. (7) Depression Current Visit: Yes Status: Acute Assessment and plan: Controlled with current medication. Monitor. Qualifiers: Depression Type: other depression Qualified Code(s): F32.89 - Other specified depressive episodes (8) Blind right eye Current Visit: Yes Status: Acute Qualifiers: Left eye visual impairment category: left - unspecified impairment Qualified Code(s): H54.40 - Blindness, one eye, unspecified eye - Time Spent With Patient less than 15 minutes - Subjective Interval history: Participating well with therapy. Ambulating with contact guard assist. 150 feet with Walker. Needs constant walker safety cues. This is due to visual impairment. Denies pain, denies fever, chills, nausea vomiting or diarrhea. Denies shortness of breath or chest pain. - Constitutional Vitals: Temp Pulse Resp BP Pulse Ox 97.8 F 67 16 144/75 98 01/28/19 07:09 01/28/19 07:09 01/28/19 07:09 01/28/19 07:09 01/28/19 07:09 General appearance: Present: cooperative, A&O X 3, pleasant, no acute distress, answers questions appropriately - Head Head exam: Present: atraumatic, normocephalic - Eye Eye exam: Present: PERRL, conjuntiva pink, sclera anicteric Pupils: Present: PERRL - Neck Neck exam general surgery: Present: supple, trachea midline. Absent: lymphadenopathy - Respiratory Respiratory exam: Present: CTAB. Absent: accessory muscle use, rales, rhonchi, wheezes - Cardiovascular Cardiovascular exam: Present: RRR, +S1, +S2. Absent: diastolic murmur, gallop, rubs, systolic murmur - GI/Abdominal GI/Abdominal exam: Present: normal bowel sounds, soft, no peritoneal signs. Absent: distended, tenderness - Extremities Exam Extremities exam: Present: warm, radial pulses palpable and symmetrical. Absent: calf tenderness, cyanotic, pedal edema - Incison Comments: Thoracic spine incision well approximated, no drainage. - Neurological Exam Neurological exam: Present: CN II-XII intact, oriented X3, no focal deficits. Absent: pronater drift, facial droop, speech deficit - Skin Skin exam: Present: dry, intact Internal Medicine: Result - Labs CBC & Chem 7: 01/24/19 13:04 01/26/19 04:21 Consult Discharge Plan - Plan Referrals: Eusebio Walker MD [Primary Care Provider] -
--- NOTE | 2019-01-28 15:08 | Physician Discharge Referral ---
ExtendedCare Referral Info Transfer To: EDF Provider in Charge after Transfer: Other (ECF Provider) Institutional Level of Care: Skilled - Diagnosis (1) Thoracic vertebral fracture Priority: Primary Status: Acute (2) Multiple rib fractures Priority: Secondary Status: Acute (3) Bilateral scapular fractures Priority: Secondary Status: Acute (4) Pneumothorax Priority: Secondary Status: Acute (5) Subdural hematoma Priority: Secondary Status: Acute (6) Hypertension, essential Priority: Secondary Status: Chronic (7) Insulin-requiring or dependent type II diabetes mellitus Priority: Secondary Status: Chronic (8) Depression Priority: Secondary Status: Acute (9) Blind right eye Priority: Secondary Status: Acute (10) Constipation Priority: Secondary Status: Acute Prognosis: Poor - Transfer Medications Home Medications: Acetaminophen [Tylenol] 650 mg PO Q4HR PRN 01/16/19 [History] Bisoprolol/HCTZ 10/6.25 [Ziac 10/6.25] 1 each PO DAILY 01/16/19 [History] BuPROPion [Wellbutrin] 150 mg PO DAILY 01/16/19 [History] Calcium 500 + Vit D Caplet 1 tab PO BID 01/16/19 [History] Docusate Sodium-Senna Tablet 1 tab PO BID 01/16/19 [History] Glimepiride [Amaryl] 4 mg PO DAILY 01/16/19 [History] Insulin Glargine [Lantus] 20 units SQ QPM 01/16/19 [History] Lidocaine [Aspercreme] 2 each TP DAILY 01/16/19 [History] Lisinopril 2.5 mg PO DAILY 01/16/19 [History] Metformin HCl [Glucophage Xr] 500 mg PO DAILY 01/16/19 [History] OxyCODONE Immed Rel 5 mg PO Q6HR PRN 01/16/19 [History] Amitriptyline [Elavil] 25 mg PO HS tablet 01/28/19 [Rx] Nystatin POWDER [Nystop] 1 appl TP BID bottle 01/28/19 [Rx] Polyethylene Glycol 3350 [MiraLAX] 17 gm PO DAILY PRN powd.pack 01/28/19 [Rx] cloNIDine HCl [CloNIDine HCl] 0.1 mg PO Q6HR PRN tablet 01/28/19 [Rx] Allergies/Adverse Reactions: Allergy/AdvReac Type Severity Reaction Status Date / Time No Known Allergies Allergy Verified 01/06/19 15:03 - Respiratory Orders Smoking Cessation: Smoking cessation has been advised. For more information, call the [place] Tobacco Quit Line at 9-792-GTLZ-NOW. - Advance Directives Code Status: Full Code - Mobility Orders Ambulate - Rehabiliation Orders Rehab Potential: Poor Rehab Orders: Evaluation for Physical Therapy, Evaluation for Occupational Therapy - Diet Orders Mechanical Soft, No Added Salt (LORRAINE), No Concentrated Sweets CERTIFICATION: I certify that the transfer of the above named patient to an Extended Care Facility is necessary for the continuing treatment of the diagnosis listed. The above information is true and accurate reflection of patient's current condition. Confidential - Redisclosure prohibited without a patient's written consent.
[2019-01-28] MEDS ORDERED: Insulin DETEMIR 100 UNIT/ML per UNIT SQ ONE (18:00)
[2019-01-28 19:40] VITALS: BP 124/76
--- NOTE | 2019-01-29 10:42 | Discharge Summary ---
- NOTES TO OUTPATIENT PROVIDER Notes to Outpatient Provider: Opioids were discontinued as patient was not taking them. She will require follow-up urine culture as she continues to complain of symptoms. Date of Encounter: 01/29/19 Time of Encounter: 17:00 - Discharge Diagnosis (1) Thoracic vertebral fracture Priority: Primary Status: Acute Qualifiers: Encounter type: subsequent encounter Thoracic vertebra fracture level: unspecified thoracic vertebra Fracture type: closed Fracture morphology: burst- stable Fracture healing: with routine healing Qualified Code(s): S22.001D - Stable burst fracture of unspecified thoracic vertebra, subsequent encounter for fracture with routine healing (2) Multiple rib fractures Priority: Secondary Status: Acute Qualifiers: Encounter type: subsequent encounter Fracture type: closed Laterality: bilateral Fracture healing: with routine healing Qualified Code(s): S22.43XD - Multiple fractures of ribs, bilateral, subsequent encounter for fracture with routine healing (3) Bilateral scapular fractures Priority: Secondary Status: Acute Qualifiers: Encounter type: subsequent encounter Fracture type: closed Fracture healing: with routine healing Qualified Code(s): S42.101D - Fracture of unspecified part of scapula, right shoulder, subsequent encounter for fracture with routine healing; S42.102D - Fracture of unspecified part of scapula, left shoulder, subsequent encounter for fracture with routine healing (4) Pneumothorax Priority: Secondary Status: Acute Qualifiers: Pneumothorax type: unspecified pneumothorax Qualified Code(s): J93.9 - Pneumothorax, unspecified (5) Subdural hematoma Priority: Secondary Status: Acute (6) Hypertension, essential Priority: Secondary Status: Chronic (7) Insulin-requiring or dependent type II diabetes mellitus Priority: Secondary Status: Chronic (8) Depression Priority: Secondary Status: Acute Qualifiers: Depression Type: other depression Qualified Code(s): F32.89 - Other specified depressive episodes (9) Blind right eye Priority: Secondary Status: Acute Qualifiers: Left eye visual impairment category: left - unspecified impairment Qualified Code(s): H54.40 - Blindness, one eye, unspecified eye (10) Constipation Priority: Secondary Status: Acute Qualifiers: Constipation type: unspecified constipation type Qualified Code(s): K59.00 - Constipation, unspecified Hospital course: Ms. Carlos is a 83 year old female who was in her usual state of health until she is a fall from tripping without loss of consciousness. She had multiple fractures of scapula, ribs, thoracic vertebrae, subdural hematoma, hemothorax, and ecchymoses. She was transferred to our facility for rehabilitation. While here, she was noted to have a urinary tract fraction with Morganella morganii and yeast species. These were treated. She received multiple therapy regimens while admitted. She participated her strength improved. She also seemed to have better pain control. However, her visual problems inhibited therapy and she was felt to be at a fall risk, not safe on her own, and family could not provide 24 7 care. For this reason, she was discharged from here to a nursing facility. She was seen in consultation by psychology who felt she had depression and insomnia. For this reason, amitriptyline was added to her bupropion just prior to discharge from here. (She had been on bupropion previously.) Toward the end of her hospitalization here, her glucose control became better, especially in the morning when she had relative hypoglycemia and her long-acting insulin was thus diminished. No colon insurance approval came late yesterday after my arrival so we remotely arranged patient discharge and this discharge summary was completed the day after actual discharge. - Time Spent with Patient Total time spent providing and/or coordinating discharge services: - Discharge Medications Prescriptions: New Nystatin POWDER [Nystop] 1 appl TP BID bottle cloNIDine HCl [CloNIDine HCl] 0.1 mg PO Q6HR PRN tablet PRN Reason: Hypertension Amitriptyline [Elavil] 25 mg PO HS tablet Polyethylene Glycol 3350 [MiraLAX] 17 gm PO DAILY PRN powd.pack PRN Reason: Constipation Continued Lisinopril 2.5 mg PO DAILY Glimepiride [Amaryl] 4 mg PO DAILY Bisoprolol/HCTZ 03/09.25 [Ziac 03/09.] 1 each PO DAILY Discontinued Enoxaparin [Lovenox] 40 mg SQ DAILY No Action OxyCODONE Immed Rel 5 mg PO Q6HR PRN PRN Reason: Severe Pain Metformin HCl [Glucophage Xr] 500 mg PO DAILY Lidocaine [Aspercreme] 2 each TP DAILY Insulin Glargine [Lantus] 20 units SQ QPM BuPROPion [Wellbutrin] 150 mg PO DAILY Acetaminophen [Tylenol] 650 mg PO Q4HR PRN PRN Reason: Mild Pain Docusate Sodium-Senna Tablet 1 tab PO BID Calcium 500 + Vit D Caplet 1 tab PO BID Home Medications: Acetaminophen [Tylenol] 650 mg PO Q4HR PRN 01/16/19 [History] Bisoprolol/HCTZ 10/6.25 [Ziac 10/6.25] 1 each PO DAILY 01/16/19 [History] BuPROPion [Wellbutrin] 150 mg PO DAILY 01/16/19 [History] Calcium 500 + Vit D Caplet 1 tab PO BID 01/16/19 [History] Docusate Sodium-Senna Tablet 1 tab PO BID 01/16/19 [History] Glimepiride [Amaryl] 4 mg PO DAILY 01/16/19 [History] Insulin Glargine [Lantus] 20 units SQ QPM 01/16/19 [History] Lidocaine [Aspercreme] 2 each TP DAILY 01/16/19 [History] Lisinopril 2.5 mg PO DAILY 01/16/19 [History] Metformin HCl [Glucophage Xr] 500 mg PO DAILY 01/16/19 [History] OxyCODONE Immed Rel 5 mg PO Q6HR PRN 01/16/19 [History] Amitriptyline [Elavil] 25 mg PO HS tablet 01/28/19 [Rx] Nystatin POWDER [Nystop] 1 appl TP BID bottle 01/28/19 [Rx] Polyethylene Glycol 3350 [MiraLAX] 17 gm PO DAILY PRN powd.pack 01/28/19 [Rx] cloNIDine HCl [CloNIDine HCl] 0.1 mg PO Q6HR PRN tablet 01/28/19 [Rx] Allergies/Adverse Reactions: Allergy/AdvReac Type Severity Reaction Status Date / Time No Known Allergies Allergy Verified 01/06/19 15:03 Date of admission: 01/16/19 17:42 Primary care physician: Eusebio Walker MD Consults: 01/16/19 18:48 Consult to Occupational Therapy [CONS] Routine Comment: Evaluate, develop and implement POC Reason for Consult: Weakness and fall Does patient have active BEDREST order?: No Is patient medically & hemodynamically stable?: Yes Consult to Physical Therapy [CONS] Routine Comment: Evaluate, develop and implement POC Reason for Consult: weakness and fall Does patient have active BEDREST order?: No Is patient medically & hemodynamically stable?: Yes Consult to Recreational Therapy [CONS] Routine Comment: Evaluate, develop and implement POC Consult to Director Hospice Operations [CONS] Routine Reason for SW Consult: discharge planning 01/17/19 08:14 Consult to Speech Therapy [CONS] Routine Comment: Evaluate, develop and implement POC Reason for Consult: TBI/ fall with fx Call Completed: Yes 01/22/19 10:03 Consult to Psychology [CONS] Routine Consulting Provider: Stacey Stewart Reason for Consult: Possible depression; adjustment disorder Call Completed: No Discharging clinician: Eusebio Walker Anticipated date of discharge: 01/28/19 - Constitutional Vitals: Temp Pulse Resp BP Pulse Ox 97.0 F L 97 14 124/76 96 01/28/19 19:37 01/28/19 19:37 01/28/19 19:37 01/28/19 19:37 01/28/19 19:37 Exam: Please see my exam from progress note, earlier today. - Patient Status Disposition: Transfer SNF Condition: Good Functional capacity at discharge: uses cane/walker Overall status at discharge: patient is progressing back to baseline - Discharge Instructions Follow Up With: Eusebio Walker MD [Primary Care Provider] - Additional Instructions: Follow-up appointments: [facility] physician group, Neuroscience [address] [place], [place] [phone] 2018 @ 11:00am If there is not an appointment listed below, please call your physician and schedule a follow-up appointment. If you have congestive heart failure and your symptoms return, make an appointment with your physician. Medication List: Carry an up to date list of medications you are taking at all time. We have given you an updated medication list including any new medications that you have been prescribed. Please provide that list to your primary provider Symptoms: If your condition changes or you experience any of the following symptoms, notify your physician immediately: Unusual or worsening pain, fever, persistent nausea and vomiting, bleeding, increase in swelling (especially in your legs), sudden weight gain, extreme dizziness, chest pain, increased drainage or redness from a wound or incision. Go to the emergency department if you experience a problem with breathing. Weights: If you have a history of swelling or shortness of breath, weigh yourself daily and notify your physician if you have a weight gain of two or more pounds in one day or 5 or more pounds in a week. If you experience any of the warning signs for stroke: Sudden numbness or weakness of the face, arm or leg; especially on one side of the body, sudden confusion, trouble speaking or understanding, sudden trouble seeing in one or both eyes, sudden trouble walking, dizziness, loss of balance or coordination, sudden sever headache with no cause; Call 911 or go to the emergency room. Stroke is a medical emergency. Some risk factors for stroke: Age, cigarette smoking, diabetes, excessive alcohol consumption, family history, high blood pressure, overweight, physical inactivity, prior stroke, heart attack, diagnosis of carotid artery stenosis or other artery disease. If you smoke, STOP: Smoking or tobacco use significantly increases your risk of heart and lung disease. Your chance of disease greatly increases if you continue to smoke. For more information, call the [place] tobacco quit line for smoking cessation 3-442-YQGI-NOW ( ) - Diet and Activity Activity: ambulate only with your walker Diet: diabetic diet, low salt diet
[2019-01-29] MEDS ORDERED: Insulin DETEMIR 100 UNIT/ML X5UNITS SQ SCH (18:00)
== END 2019-01-28 20:53 | DRG 949 ==
LOC: INPGRE 01-16 17:42